=== PATIENT | male | born 1965 | race Caucasian/White ===

== ENCOUNTER 2018-07-09 12:58 | Emergency (ER) | payer MEDICAID, SELFPAY ==
[2018-07-09 12:59] VITALS: BP 150/106; PULSE 87; PULSE 90; RESP 16; RESP 19; TEMP 36.5; O2SAT 100; O2SAT 97; BMI 28.5
--- NOTE | 2018-07-09 13:22 | EKG12_ITS ---
Test Reason : CP Blood Pressure : / mmHG Vent. Rate : 075 BPM Atrial Rate : 075 BPM P-R Int : 140 ms QRS Dur : 090 ms QT Int : 388 ms P-R-T Axes : 045 -21 068 degrees QTc Int : 433 ms Normal sinus rhythm Leftward axis Low voltage QRS (LIMB LEADS) Septal LA, age undetermined Nonspecific T wave abnormality Abnormal ECG Confirmed by AUDELIA JENSEN, BARBARA ([id number]), editor continuity and script PATRICIA SWARTZ ([id number]) on 07/12/2018 1:17:21 PM Referred By: CHE/HUEY Confirmed By:BARBARA WIN MD
--- NOTE | 2018-07-09 13:23 | CT_ITS ---
STUDY: CTA OF THE ABDOMINAL AORTA WITH AND WITHOUT CONTRAST REASON FOR EXAM: Male, 53 years old. Rule out dissection. RADIATION DOSAGE (If Supplied By Facility): CTDIvol = ( 15.06 ) mGy, DLP = ( 1063.12 ) mGycm TECHNIQUE: Axial CT angiography multi-detector data acquisition was obtained from the thoracic inlet through the aortic bifurcation following intravenous administration of 100 ml of Isovue 300 contrast. Axial images were reconstructed from the axial data set. Post-processing was performed, with multiplanar reformation. Individualized dose optimization techniques were used for this CT. TECHNICAL QUALITY: Good COMPARISON: None. FINDINGS: CTA CHEST: The heart and pericardium are normal. The aorta is normal in caliber, with no aneurysm or dissection. There is no mediastinal mass, adenopathy, or hematoma. There is no pleural effusion or pneumothorax. There is no pulmonary consolidation. Lung osman are clear. There is no osseous abnormality. CTA ABDOMEN PELVIS: The liver, spleen, pancreas, adrenal glands, and kidneys are unremarkable. Gallbladder is unremarkable. The aorta is normal in caliber, with no aneurysm or dissection. Celiac, SMA, NATE, renal, and common iliac arteries are unremarkable. There is no demonstrated free fluid, free air, or organized collection. There is moderate wall thickening of the gastric antrum and duodenum, with stranding and shotty adenopathy inferior to the gastric antrum and anterior to the first duodenal segment. Findings are suspicious for peptic ulcer disease or infectious or inflammatory gastroenteritis. There is moderate bowel wall thickening from the duodenum to the mid to distal jejunum. Differential considerations include: Infectious enterocolitis, Crohn's disease, less likely ischemia or lymphoma. There is no bowel obstruction. Diverticulosis is noted, with no demonstrated diverticulitis. The appendix is normal. There is no osseous abnormality. IMPRESSION: 1. There is no dissection or vascular abnormality. 2. Stranding adjacent to the gastric antrum and proximal duodenum suspicious for ulcer disease or gastroenteritis. 3. Moderately extensive small bowel wall thickening through the mid jejunum, suspicious for infectious enterocolitis or Crohn's disease. Electronically Signed: Karon Douglas MD at 16:23 EST Tel , Service support , STUDY: CTA CHEST REASON FOR EXAM: Male, 53 years old. Rule out dissection. RADIATION DOSAGE (If Supplied By Facility): CTDIvol = ( 15.06 ) mGy, DLP = ( 1063.12 ) mGycm TECHNIQUE: Axial CT angiography multi-detector data acquisition was obtained from the thoracic inlet through the aortic bifurcation following intravenous administration of 100 ml of Isovue 300 contrast. Axial images were reconstructed from the axial data set. Post-processing was performed, with multiplanar reformation. Individualized dose optimization techniques were used for this CT. TECHNICAL QUALITY: Good COMPARISON: None. FINDINGS: CTA CHEST: The heart and pericardium are normal. The aorta is normal in caliber, with no aneurysm or dissection. There is no mediastinal mass, adenopathy, or hematoma. There is no pleural effusion or pneumothorax. There is no pulmonary consolidation. Lung osman are clear. There is no osseous abnormality. CTA ABDOMEN PELVIS: The liver, spleen, pancreas, adrenal glands, and kidneys are unremarkable. Gallbladder is unremarkable. The aorta is normal in caliber, with no aneurysm or dissection. Celiac, SMA, NATE, renal, and common iliac arteries are unremarkable. There is no demonstrated free fluid, free air, or organized collection. There is moderate wall thickening of the gastric antrum and duodenum, with stranding and shotty adenopathy inferior to the gastric antrum and anterior to the first duodenal segment. Findings are suspicious for peptic ulcer disease or infectious or inflammatory gastroenteritis. There is moderate bowel wall thickening from the duodenum to the mid to distal jejunum. Differential considerations include: Infectious enterocolitis, Crohn's disease, less likely ischemia or lymphoma. There is no bowel obstruction. Diverticulosis is noted, with no demonstrated diverticulitis. The appendix is normal. There is no osseous abnormality. CT/CTA Abdomen W/WO Contrast IMPRESSION: 1. There is no dissection or demonstrated vascular abnormality. 2. Stranding adjacent to the gastric antrum and proximal duodenum suspicious for ulcer disease or gastroenteritis. 3. Moderately extensive small bowel wall thickening through the mid jejunum, suspicious for infectious enterocolitis or Crohn's disease. Electronically Signed: Karon Douglas MD at 16:23 EST Tel , Service support ,
--- NOTE | 2018-07-09 13:23 | CT_ITS ---
STUDY: CTA OF THE ABDOMINAL AORTA WITH AND WITHOUT CONTRAST REASON FOR EXAM: Male, 53 years old. Rule out dissection. RADIATION DOSAGE (If Supplied By Facility): CTDIvol = ( 15.06 ) mGy, DLP = ( 1063.12 ) mGycm TECHNIQUE: Axial CT angiography multi-detector data acquisition was obtained from the thoracic inlet through the aortic bifurcation following intravenous administration of 100 ml of Isovue 300 contrast. Axial images were reconstructed from the axial data set. Post-processing was performed, with multiplanar reformation. Individualized dose optimization techniques were used for this CT. TECHNICAL QUALITY: Good COMPARISON: None. FINDINGS: CTA CHEST: The heart and pericardium are normal. The aorta is normal in caliber, with no aneurysm or dissection. There is no mediastinal mass, adenopathy, or hematoma. There is no pleural effusion or pneumothorax. There is no pulmonary consolidation. Lung osman are clear. There is no osseous abnormality. CTA ABDOMEN PELVIS: The liver, spleen, pancreas, adrenal glands, and kidneys are unremarkable. Gallbladder is unremarkable. The aorta is normal in caliber, with no aneurysm or dissection. Celiac, SMA, NATE, renal, and common iliac arteries are unremarkable. There is no demonstrated free fluid, free air, or organized collection. There is moderate wall thickening of the gastric antrum and duodenum, with stranding and shotty adenopathy inferior to the gastric antrum and anterior to the first duodenal segment. Findings are suspicious for peptic ulcer disease or infectious or inflammatory gastroenteritis. There is moderate bowel wall thickening from the duodenum to the mid to distal jejunum. Differential considerations include: Infectious enterocolitis, Crohn's disease, less likely ischemia or lymphoma. There is no bowel obstruction. Diverticulosis is noted, with no demonstrated diverticulitis. The appendix is normal. There is no osseous abnormality. IMPRESSION: 1. There is no dissection or vascular abnormality. 2. Stranding adjacent to the gastric antrum and proximal duodenum suspicious for ulcer disease or gastroenteritis. 3. Moderately extensive small bowel wall thickening through the mid jejunum, suspicious for infectious enterocolitis or Crohn's disease. Electronically Signed: Karon Douglas MD at 16:23 EST Tel , Service support , STUDY: CTA CHEST REASON FOR EXAM: Male, 53 years old. Rule out dissection. RADIATION DOSAGE (If Supplied By Facility): CTDIvol = ( 15.06 ) mGy, DLP = ( 1063.12 ) mGycm TECHNIQUE: Axial CT angiography multi-detector data acquisition was obtained from the thoracic inlet through the aortic bifurcation following intravenous administration of 100 ml of Isovue 300 contrast. Axial images were reconstructed from the axial data set. Post-processing was performed, with multiplanar reformation. Individualized dose optimization techniques were used for this CT. TECHNICAL QUALITY: Good COMPARISON: None. FINDINGS: CTA CHEST: The heart and pericardium are normal. The aorta is normal in caliber, with no aneurysm or dissection. There is no mediastinal mass, adenopathy, or hematoma. There is no pleural effusion or pneumothorax. There is no pulmonary consolidation. Lung osman are clear. There is no osseous abnormality. CTA ABDOMEN PELVIS: The liver, spleen, pancreas, adrenal glands, and kidneys are unremarkable. Gallbladder is unremarkable. The aorta is normal in caliber, with no aneurysm or dissection. Celiac, SMA, NATE, renal, and common iliac arteries are unremarkable. There is no demonstrated free fluid, free air, or organized collection. There is moderate wall thickening of the gastric antrum and duodenum, with stranding and shotty adenopathy inferior to the gastric antrum and anterior to the first duodenal segment. Findings are suspicious for peptic ulcer disease or infectious or inflammatory gastroenteritis. There is moderate bowel wall thickening from the duodenum to the mid to distal jejunum. Differential considerations include: Infectious enterocolitis, Crohn's disease, less likely ischemia or lymphoma. There is no bowel obstruction. Diverticulosis is noted, with no demonstrated diverticulitis. The appendix is normal. There is no osseous abnormality. CT/CTA Chest W/WO Contrast IMPRESSION: 1. There is no dissection or demonstrated vascular abnormality. 2. Stranding adjacent to the gastric antrum and proximal duodenum suspicious for ulcer disease or gastroenteritis. 3. Moderately extensive small bowel wall thickening through the mid jejunum, suspicious for infectious enterocolitis or Crohn's disease. Electronically Signed: Karon Douglas MD at 16:23 EST Tel , Service support ,
[2018-07-09 13:46] VITALS: O2SAT 96
[2018-07-09 13:47] LABS: Absolute Lymphocyte Count 2.18 X10^3/ul (0.83-4.51); Absolute Neutrophil Count 9.7 X10^3/uL (2.0-7.7); Basophil# 0.09 X10^3/uL; Basophil% 0.6 % (0-1); Eosinophil# 0.59 X10^3/uL; Eosinophils% 4.2 % (0-5); Hematocrit 50.2 % (40-54); Lymphocyte # 2.18 X10^3/ul (4.0); Lymphocyte % 15.5 % (19-41); Mean Corp Hgb Conc 33.9 g/gl (32-36); Mean Corpuscular Hgb 30.1 pg (27.0-32.0); Mean Platelet Vol. 9.6 fl (6.2-12.0); Monocyte# 1.47 X10^3/uL; Monocyte% 10.5 % (0-10); Neutrophil # 9.68 X10^3/uL (2.7-7.7); Neutrophil % 69.1 % (47-70); Platelet Count 342 K/mm3 (150-450); RBC Distribution Width CV 13.5 % (11.6-14.6); RBC Distribution Width SD 43.9 fl (35.1-43.9); Red Blood Count 5.64 M/mm3 (4.6-6.2)
[2018-07-09] MEDS: Ondansetron 4 MG/2 ML Vial IV (13:51)
[2018-07-09 13:53] LABS: POSITIVE COUNT NO; POSITIVE DIFFERENTIAL NO; POSITIVE MORPHOLOGY NO
[2018-07-09 13:55] LABS: AST(SGOT) 19 U/L (15-37); Alanine Aminotransfer ALT/SGPT 49 U/L (16-61); Albumin, Serum 4.2 g/dL (3.2-5.0); Alkaline Phosphatase 102 U/L (45-117); Anion Gap 10 (5-15); BUN 25 mg/dL (7-18); BUN/Creat Ratio 22.3 RATIO (10-20); Bilirubin, Direct 0.17 mg/dL (0.00-0.30); Chloride 99 mmol/L (98-107); Creatinine, Serum 1.12 mg/dL (0.70-1.30); EST Glomerular Filtration Rate 73 mL/min (>60); Est Glom Filt Rate - Afr Amer 89 mL/min (>60); Estimated Creatinine Clearance 75.49 ml/min; Glucose 108 mg/dL (74-106); Lipase 347 U/L (73-393); Potassium 3.9 mmol/L (3.5-5.1); Protein, Total 8.2 g/dL (6.4-8.2); Sodium Level 136 mmol/L (136-145)
[2018-07-09 13:59] VITALS: BP 156/98; PULSE 71; RESP 16; O2SAT 96
[2018-07-09 14:00] VITALS: BP 156/98; PULSE 70; RESP 16; O2SAT 96
[2018-07-09] MEDS: Mag Hydrox/Al Hydrox/Simeth 30 ML UDC PO (14:10)
[2018-07-09] MEDS: proMETHazine 25 MG/ML Syringe 12.5 MG IV (14:41)
[2018-07-09] MEDS: Aspirin 81 MG TAB.CHEW 324 MG PO (14:51)
--- NOTE | 2018-07-09 16:15 | ED.RN ---
PT WAS UP INDEPENDENTLY TO BATHROOM, GAIT STEADY, PT BACK TO ROOM SITTING UP IN CHAIR REMOVING IV FROM LFA, PT HAS HIS BOOTS ON AND WANTS TO LEAVE. PT THEN REPORTED I'M FEELING WORSE AGAIN. 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 FAMILY AT BEDSIDE. PT AWARE WAITING ON CT SCAN RESULTS. DR. BOLTON INFORMED OF SAME AND WILL SPEAK WITH PT.
[2018-07-09 16:16] LABS: Bedside Glucose 98 mg/dL (70-110)
--- NOTE | 2018-07-09 16:28 | ED.VISSUMM ---
- ER Visit Summary Date of Service: 07/09/18 Chief Complaint: Syncope, unresponsive episode, epigastric pain History of Present Illness: The patient is a 53 M who had a syncopal episode and unresponsive episode per the son. He was using the bathroom when he felt lightheaded and dizzy. He then went to the bed and was unresponsive. He now has epigastric abdominal pain. He does feel some short of breath. He his last stress test is unknown. He is on Augmentin currently for issues with his ears. He denies a fever. Physical Examination: Vital signs reviewed. HEENT exam unremarkable. Heart is regular rate and rhythm without murmurs. Lungs are clear to auscultation. There is lower chest tenderness to palpation. Abdomen is soft epigastric tenderness to palpation. Extremities reveal no edema. Skin exam normal. Neurologic exam normal. Test Results: EKG is normal sinus rhythm with a rate of 75. White blood cell count 14. Troponin normal. CAT scan of the abdomen and pelvis as well as chest reveals no dissection. There is stranding adjacent to the gastric antrum suspicious for ulcer disease. He also has colitis in the small bowel to the mid jejunum Emergency Department Course and Treatment: His syncopal episode was likely vasovagal. Patient is already on Augmentin. He will continue this. I will add Phenergan and Prilosec for home. He received aspirin, Zofran, GI cocktail and Phenergan here. Treatment Plan: [] Disposition: Discharge Impression: Colitis, syncope This note was generated with [employer] dictation software. It may contain incorrect words, spelling, and punctuation that were not noted in review of the chart prior to signing ED Disposition - Plan for ED Patient: Chief Complaint: Unresponsive Referrals: Viktor Marie MD [Primary Care Provider] -
--- NOTE | 2018-07-09 16:30 | ED.DEP ---
ED Disposition - Plan for ED Patient: Disposition: Home or Assisted Living Chief Complaint: Unresponsive Instructions: ED Gastroenteritis Bacterial Prescriptions: proMETHazine tablet [Phenergan] 25 mg PO Q6H PRN PRN #10 tab PRN Reason: Nausea Omeprazole [Prilosec] 20 mg PO DAILY #30 cap Referrals: Viktor Marie MD [Primary Care Provider] -
[2018-07-09 16:40] VITALS: BP 136/93; PULSE 100; RESP 20
== END 2018-07-09 16:43 | disposition home or self-care (01) ==
PROVIDERS: Emergency Provider Emergency Medicine; Family Provider Family Medicine; PCP Family Medicine
DX: K52.9 Noninfective gastroenteritis and colitis, unspecified (principal); R55 Syncope and collapse; I10 Essential (primary) hypertension; Z79.899 Other long term (current) drug therapy; Z72.0 Tobacco use
CPT/HCPCS: 71275; 74175; 80048; 80076; 82962; 83690; 84484; 85025; 93005; 96374; 96375; 99285; J7030; Q9967; A4216; J2405

== ENCOUNTER → 2020-11-07 08:43 | Outpatient (CLI) | payer MEDICAID, SELFPAY ==
[2020-10-05 14:21] VITALS: BMI 31.9
--- NOTE | 2020-11-07 08:44 | MRI_ITS ---
STUDY: MRI LUMBAR SPINE WITHOUT CONTRAST REASON FOR EXAM: Male, 55 years old. pain TECHNIQUE: Standardized fat and water weighted pulse sequences were obtained in the sagittal and axial planes. COMPARISON: X-ray dated 10/05/2020 FINDINGS: Normal lumbar lordosis. There is no substantial scoliosis. Normal conus medullaris that terminates at the L1. L1-2: There is minimal disc space narrowing and endplate spondylosis. There is no significant disc herniation, central canal or foraminal stenosis. L2-3: There is mild disc space narrowing and endplate spondylosis. Mild disc bulge and moderate facet arthropathy with moderate central canal stenosis. Moderate right and mild left foraminal stenosis. L3-4: There is mild disc space narrowing and endplates spondylosis.. Posterior transpedicular screw fusion and decompression laminectomy. There is no demonstrated central canal or left foraminal stenosis. There is mild right foraminal stenosis. L4-5: There is minimal disc space narrowing and endplates spondylosis. Minimal disc bulge and mild facet arthropathy. There is a decompression laminectomy. There is no demonstrated central canal or foraminal stenosis. L5-S1: There is minimal disc space narrowing and endplate spondylosis. There is no significant disc herniation, central canal or foraminal stenosis. Normal visualized sacral ala. MRI/Spine Lumbar (Routine) IMPRESSION: L2/L3: Moderate central canal stenosis. Moderate right foraminal stenosis. L3-L5: Postoperative changes. Electronically Signed: Alfa Blount MD at 9:44 EDT Tel , Service support ,
== END ==
PROVIDERS: PCP Nurse Practitioner Primary Care; Referring Provider Orthopaedic Surgery; Visit Provider Orthopaedic Surgery
DX: M51.26 Other intervertebral disc displacement, lumbar region (principal); G83.4 Cauda equina syndrome
CPT/HCPCS: 72148

== ENCOUNTER 2021-03-27 01:00 | Emergency (ER) | payer MEDICAID, SELFPAY ==
[2021-03-27 01:01] VITALS: BP 172/115; PULSE 88; RESP 16; TEMP 36.1; O2SAT 99; BMI 30.4
--- NOTE | 2021-03-27 03:16 | EDS_ITS ---
HPI History of Present Illness Chief Complaint: Dental Informant: patient Onset/Context/Timing Onset: Today Context: Gradual Onset Timing: Continuous Quality: Sharp, aching Location: Left lower molars Worsened by: Nothing Relieved by: - (Cold liquids) Associated Symptoms Assocated Symptom - Dental: hot sensitivity; Negative for fever, jaw swelling, face swelling or cold sensitivity Narrative Narrative: Patient presents with left lower dental pain that has been getting worse throughout the day today. Patient states his pain is sharp and aching. Patient states it is better when drinking cold liquids. Patient states he has been taking [id number] medications with no improvement. Patient denies any fevers or chills. Patient denies any difficulty breathing or difficulty swallowing. [facility] Medical History Hypertension Home Medications promethazine 25 mg PO Q6H PRN PRN #10 tab 07/09/18 [Rx Last Taken Unknown] buspirone 5 mg tablet 5 mg PO DIRECTED tab 12/09/20 [History Last Taken Unknown] lisinopril 20 mg tablet 20 mg PO DAILY tab 12/09/20 [History Last Taken Unknown] omeprazole 20 mg capsule,delayed release 20 mg PO DAILY cap 02/15/21 [History Last Taken Unknown] tizanidine 4 mg capsule 4 mg PO BID PRN 02/15/21 [History Last Taken Unknown] penicillin V potassium 500 mg PO 4X/DAY #40 tab 03/27/21 [Rx Last Taken Unknown] Allergy/AdvReac Type Severity Reaction Status Date / Time No Known Allergies Allergy Verified 03/27/21 01:01 Family History Other Cancer Heart disease Hypertension Surgical History History of back surgery History of double hernia surgery History of elbow surgery history of partial amputation of finger Social History Smoking Status: Current every day smoker tobacco type: cigarettes alcohol intake: current alcohol intake frequency: a few times a month what type of physical activity do you participate in: other details: stretching frequency: daily ROS ROS ED Constitutional Constitutional ED: Denies chills or fever(s) Eyes Eyes: Denies blurry vision or change in vision ENT ENT ED: Denies rhinorrhea or sore throat Cardiovascular Cardiovascular: Denies chest pain or palpitations Respiratory/Chest Respiratory/Chest: Denies cough or dyspnea Gastrointestinal Gastrointestinal: Denies nausea or vomiting Genitourinary Genitourinary ED: Denies dysuria or hematuria Musculoskeletal Musculoskeletal: Denies back pain or neck pain Integumentary Denies abscess or rash Neurologic Neurologic: Denies headache(s) or weakness Allergic/Immunologic Allergic/Immunologic ED: Denies mouth swelling or urticaria EXAM Physical Exam Const Vital Signs: 03/27/21 01:01 Temperature 97 F L Temperature Source Temporal Pulse Rate 88 Respiratory Rate 16 Blood Pressure 172/115 H Blood Pressure Mean 134 Pulse Ox 99 Positive well nourished and well developed General Appearance ED: well developed HEENT HEENT Narrative: There is tenderness to percussion over the left lower second molar. There is a large dental carry noted over this tooth. There is no gingival edema. There is no abscess. There is no sublingual edema or. Oral mucosa is pink and moist. Oropharynx is clear. Airway is patent. Mouth ED: Yes tongue normal Mouth: tongue normal Teeth and Gingiva: caries Throat: posterior oropharynx normal Neck no lymphadenopathy, supple and no JVD General: normal visual inspection; Negative for anterior neck swelling or submandibular swelling Resp normal respiratory effort and clear to auscultation bilaterally Cardio regular rate and regular rhythm Neuro oriented x3, CN's II-XII intact bilaterally, moves all extremities, no focal motor deficits and no sensory deficits noted Sensorium / Orientation: alert Psych mental status grossly normal MDM MDM MDM Narrative Medical decision making narrative: Patient was given a dose of Pen-Vee K and Naprosyn here. Patient was given a prescription for Pen-Vee K. Patient was instructed to follow-up with his dentist in 5 to 7 days. Patient was instructed return if worse in any way. Patient understood and was agreeable with the plan. All questions were answered. Discharge Plan Triage Chief Complaint: Dental ED Provider: Von Zamorano Dx/Rx/DC Orders Clinical Impression: Infected dental caries Instructions: ED Dental Cavity Prescriptions: New penicillin V potassium 500 MG tablet 500 mg PO 4X/DAY Qty: 40 RF: 0 No Action lisinopril 20 mg tablet 20 mg PO DAILY RF: 0 buspirone 5 mg tablet 5 mg PO DIRECTED RF: 0 omeprazole 20 mg capsule,delayed release(DR/EC) 20 mg PO DAILY RF: 0 tizanidine [Zanaflex] 4 mg capsule 4 mg PO BID PRNRF: 0 promethazine 25 MG tablet 25 mg PO Q6H PRN PRN (Reason: Nausea) Qty: 10 RF: 0 Primary Care Provider: Carl Huang NP Referrals: Carl Huang NP, [facility] [employer] [facility] [Primary Care Provider] - 5-7 Days Dentist,Your [STAFF PHYSICIAN] - 3-5 Days Disposition Disposition: Home, Self Care Discharge Date/Time: 03/27/21 03:30
[2021-03-27] MEDS: Naproxen 250 MG Tablet 500 MG PO (03:30)
[2021-03-27] MEDS: Penicillin Vk 250 MG Tablet 500 MG PO (03:30)
== END 2021-03-27 03:30 | disposition home or self-care (01) ==
PROVIDERS: Emergency Provider Emergency Medicine; PCP Nurse Practitioner Primary Care
DX: K02.9 Dental caries, unspecified (principal); F17.210 Nicotine dependence, cigarettes, uncomplicated
CPT/HCPCS: 99283

== ENCOUNTER 2021-05-31 02:31 | Observation (INO) | payer MEDICAID, SELFPAY ==
[2021-05-31] VITALS (11 sets, daily range): BP systolic 135–185; BP diastolic 76–149; PULSE 54–91; RESP 16–20; TEMP 36.4–36.8; O2SAT 90–100; BMI 30.4; BMI 29.4
--- NOTE | 2021-05-31 02:37 | RAD_ITS ---
STUDY: X-RAY CHEST REASON FOR EXAM: Male, 56 years old. chest pain TECHNIQUE: Single AP portable view of the chest. COMPARISON: Digital Imager view CT chest July 09, 2018. FINDINGS: No focal infiltrates or effusions. No pneumothorax. Normal size heart. Normal mediastinum and mark. Normal visualized pulmonary arteries. Normal visualized aortic arch and descending thoracic aorta. Normal visualized thoracic spine. Normal visualized ribs, clavicles, and shoulders. There is no demonstrated abnormality of the visualized soft tissue structures of the upper abdomen. RAD/Chest 1 View (Portable) IMPRESSION: No acute cardiopulmonary disease. Electronically Signed: August Archibald MD at 3:16 EST , Service support ,
--- NOTE | 2021-05-31 02:37 | EKG12_ITS ---
Test Reason : CP Blood Pressure : / mmHG Vent. Rate : 061 BPM Atrial Rate : 061 BPM P-R Int : 134 ms QRS Dur : 084 ms QT Int : 418 ms P-R-T Axes : 029 -13 055 degrees QTc Int : 420 ms Normal sinus rhythm Nonspecific T wave abnormality Abnormal ECG Confirmed by LESA JENSEN, SYED ([id number]), writer editor JONATHAN MACK ([id number]) on 06/01/2021 1:26:03 PM Referred By: KELLY Confirmed By:SYED MCFADDEN MD
--- NOTE | 2021-05-31 02:42 | EDS_ITS ---
HPI History of Present Illness Chief Complaint: Chest Pain Informant: patient and EMS Onset/Context/Timing Onset: Hours Activity at onset: - (Woke with pain) Timing: Continuous Quality: Positive for Sharp and Stabbing Current Severity: Severe Maximum Severity: Severe Narrative Narrative: Patient presents via EMS secondary to chest and upper abdominal pain. He states he felt well when he went to sleep but woke a couple hours ago with severe pain in lower chest and upper abdomen. He did reportedly vomit. He reports mild shortness of breath. He states he is felt well the last several days with no fever or cough. [facility] Medical History Hypertension Home Medications promethazine 25 mg PO Q6H PRN PRN #10 tab 07/09/18 [Rx Last Taken Unknown] buspirone 5 mg tablet 5 mg PO DIRECTED tab 12/09/20 [History Last Taken Unknown] lisinopril 20 mg tablet 20 mg PO DAILY tab 12/09/20 [History Last Taken Unknown] omeprazole 20 mg capsule,delayed release 20 mg PO DAILY cap 02/15/21 [History Last Taken Unknown] tizanidine 4 mg capsule 4 mg PO BID PRN 02/15/21 [History Last Taken Unknown] penicillin V potassium 500 mg PO 4X/DAY #40 tab 03/27/21 [Rx Last Taken Unknown] Allergy/AdvReac Type Severity Reaction Status Date / Time No Known Allergies Allergy Verified 03/27/21 01:01 Family History Other Cancer Heart disease Hypertension Surgical History History of back surgery History of double hernia surgery History of elbow surgery history of partial amputation of finger Social History Smoking Status: Current every day smoker tobacco type: cigarettes alcohol intake: current alcohol intake frequency: a few times a month what type of physical activity do you participate in: other details: stretching frequency: daily ROS ROS ED Constitutional Constitutional ED: Denies chills or fever(s) Eyes Eyes: Denies change in vision ENT ENT ED: Denies sore throat Cardiovascular Cardiovascular: Reports chest pain Respiratory/Chest Respiratory/Chest: Reports dyspnea; Denies cough Gastrointestinal Gastrointestinal: Reports abdominal pain, nausea and vomiting; Denies diarrhea Genitourinary Genitourinary ED: Denies dysuria Musculoskeletal Musculoskeletal: Denies back pain Integumentary Denies rash Neurologic Neurologic: Denies headache(s) or weakness Psychiatric Psychiatric: Reports anxiety; Denies depression Allergic/Immunologic Allergic/Immunologic ED: Denies urticaria EXAM Physical Exam Const Vital Signs: 05/31/21 02:32 05/31/21 02:42 05/31/21 02:59 Temperature 97.7 F L Temperature Source Oral Pulse Rate 73 60 Respiratory Rate 20 H 17 Blood Pressure 185/149 H 163/99 H Blood Pressure Mean 161 120 Pulse Ox 100 99 90 Oxygen Delivery Method Room Air Room Air Room Air Oxygen Flow Rate (L/min) 05/31/21 03:58 Temperature Temperature Source Pulse Rate 60 Respiratory Rate 17 Blood Pressure 176/101 H Blood Pressure Mean 126 Pulse Ox 96 Oxygen Delivery Method Nasal Cannula Oxygen Flow Rate (L/min) 2 Positive well nourished and well developed General Appearance ED: well developed HEENT Reports moist mucous membranes Eyes PERRL and EOMs intact bilaterally Chest Wall inspection of chest normal and palpation of chest normal Resp Resp Narrative: Tachypnea. Lungs clear to auscultation. Cardio regular rate and regular rhythm GI GI Narrative: Epigastric tenderness to palpation. Extremity normal to inspection Neuro oriented x3 Sensorium / Orientation: awake and alert Psych Attitude: agitated Mood & Affect: anxious Skin Skin Narrative: Diaphoretic Heart Score History: Moderately Suspicious ECG: Normal Age: >45 - <65 years Risk Factors: 1 or 2 Risk Factors Troponin: </= Normal Limit Score: 3 MDM MDM MDM Narrative Medical decision making narrative: Patient been given aspirin with squad. He was given morphine and Zofran here for pain and nausea. Lab work, EKG, chest x- ray obtained. Lab Data Attestation: I reviewed the patient's lab results. Labs: Laboratory Results - last 24 hr 05/31/21 05/31/21 05/31/21 02:44 02:44 02:47 WBC 14.3 H RBC 4.97 Hgb 15.1 Hct 44.6 MCV 89.7 MCH 30.4 MCHC 33.9 RDW Std Deviation 42.4 RDW Coeff of Aarti 12.9 Plt Count 285 MPV 10.6 Immature Gran % (Auto) 0.400 Neut % (Auto) 80.6 H Lymph % (Auto) 12.3 L [place] % (Auto) 5.7 Eos % (Auto) 0.4 Baso % (Auto) 0.6 Absolute Neuts (auto) 11.5 H Absolute Lymphs (auto) 1.76 Nucleated RBC % 0 D-Dimer Quant (PE/DVT) <= 0.27 Sodium 140 Potassium 3.7 Chloride 108 H Carbon Dioxide 27.0 Anion Gap 5 BUN 12 Creatinine 0.88 Estim Creat Clear Calc 92.84 Est GFR (MDRD) Af Amer 116 Est GFR (MDRD) Non-Af 96 BUN/Creatinine Ratio 13.6 Glucose 152 H Calcium 8.4 L Total Bilirubin 0.10 L Direct Bilirubin 0.06 AST 12 L ALT 26 Alkaline Phosphatase 88 Troponin I High Sens 10 Total Protein 6.7 Albumin 3.2 Globulin 3.5 Lipase 225 Radiography Chest X-Ray - ED: 1 View, Read by ED Physician, Normal, Heart, Lungs and Mediastinum Diagnostic Testing: Clinical Impression(s) from Imaging Studies Chest X-Ray 05/31/21 02:37 IMPRESSION: No acute cardiopulmonary disease. Electronically Signed: August Archibald MD at 3:16 EST , Service support , Chest/Abdomen/Pelvis CTA 05/31/21 03:23 IMPRESSION: No acute findings in the chest, abdomen or pelvis. No intra-abdominal free air or free fluid collections. No evidence of bowel obstruction. New nonspecific areas of contrast enhancement of the liver. No evidence of a discrete mass. Correlate with liver function tests. Consider MRI for clarification. Colonic diverticulosis. Electronically Signed: August Archibald MD at 4:37 EST , Service support , EKG Initial EKG: Attestation: I personally reviewed and interpreted this EKG as follows: Interpretation: Sinus Rhythm (Sinus at 61 bpm. Nonspecific lateral T wave flattening.) Treatment and Re-Evaluation Comments:: Patient did require additional dose of Dilaudid and Zofran for further pain control. Lab work significant for leukocytosis with a white count of 14.3. D-dimer and initial troponin negative. LFTs and lipase normal. CTA chest, abdomen, pelvis obtained with no acute findings noted to explain his symptoms. On repeat evaluation patient much more comfortable at this time. Repeat 2-hour troponin has been drawn. I will speak with hospitalist regarding admission for cycling of enzymes and ensure patient is able to tolerate diet. Discharge Plan Triage Chief Complaint: Chest Pain ED Provider: Claudette Harrington Dx/Rx/DC Orders Clinical Impression: Chest pain, Epigastric pain Prescriptions: No Action lisinopril 20 mg tablet 20 mg PO DAILY RF: 0 buspirone 5 mg tablet 5 mg PO DIRECTED RF: 0 omeprazole 20 mg capsule,delayed release(DR/EC) 20 mg PO DAILY RF: 0 tizanidine [Zanaflex] 4 mg capsule 4 mg PO BID PRNRF: 0 promethazine 25 MG tablet 25 mg PO Q6H PRN PRN (Reason: Nausea) Qty: 10 RF: 0 penicillin V potassium 500 MG tablet 500 mg PO 4X/DAY Qty: 40 RF: 0 Primary Care Provider: Calr Huang NP Referrals: Carl Huang SENIOR APPLICATIONS ANALYST, SENIOR APPLICATIONS ANALYST-C [Primary Care Provider] - Disposition Disposition: Acute Care Hospital [facility]
[2021-05-31] MEDS: Ondansetron 4 MG/2 ML Vial IV ×2 (02:45→03:27)
[2021-05-31] MEDS: Morphine 4 MG/ML Syringe IV (02:45)
[2021-05-31] MEDS: 0.9% Normal Saline 1,000 ML 150 ML IV (03:00)
[2021-05-31 03:05] LABS: Absolute Lymphocyte Count 1.76 X10^3/uL (0.83-4.51); Absolute Neutrophil Count 11.5 X10^3/uL (2.0-7.7); Basophil# 0.09 X10^3/uL; Basophil% 0.6 % (0-1); Eosinophil# 0.06 X10^3/uL; Eosinophils% 0.4 % (0-5); Hematocrit 44.6 % (40-54); Hemoglobin 15.1 g/dL (13.0-16.5); Lymphocyte # 1.76 X10^3/ul (0.83-4.51); Lymphocyte % 12.3 % (19-41); Mean Corp Hgb Conc 33.9 g/dL (32-36); Mean Corpuscular Hgb 30.4 pg (27.0-32.0); Mean Corpuscular Volume 89.7 fL (80-94); Mean Platelet Vol. 10.6 fl (6.2-12.0); Monocyte# 0.81 X10^3/uL; Monocyte% 5.7 % (0-10); NRBC Flagged by Analyzer 0 % (0-5); Neutrophil % 80.6 % (47-70); Platelet Count 285 K/mm3 (150-450); RBC Distribution Width CV 12.9 % (11.6-14.6); RBC Distribution Width SD 42.4 fl (35.1-43.9); Red Blood Count 4.97 M/mm3 (4.6-6.2); White Blood Count 14.3 K/mm3 (4.4-11.0)
[2021-05-31 03:20] LABS: AST(SGOT) 12 U/L (15-37); Alanine Aminotransfer ALT/SGPT 26 U/L (16-61); Albumin, Serum 3.2 g/dL (3.2-5.0); Alkaline Phosphatase 88 U/L (45-117); Anion Gap 5 (5-15); BUN 12 mg/dL (7-18); BUN/Creat Ratio 13.6 RATIO (10-20); Bilirubin, Direct 0.06 mg/dL (0.00-0.30); Calcium,Total 8.4 mg/dL (8.5-10.1); Chloride 108 mmol/L (98-107); Creatinine, Serum 0.88 mg/dL (0.70-1.30); EST Glomerular Filtration Rate 96 mL/min (>60); Est Glom Filt Rate - Afr Amer 116 mL/min (>60); Estimated Creatinine Clearance 92.84 ml/min; Globulin 3.5 g/dL (2.2-4.2); Glucose 152 mg/dL (74-106); Lipase 225 U/L (73-393); Potassium 3.7 mmol/L (3.5-5.1); Protein, Total 6.7 g/dL (6.4-8.2); Sodium Level 140 mmol/L (136-145); Troponin-I HS 10 pg/mL (3.0-78.0)
--- NOTE | 2021-05-31 03:23 | CT_ITS ---
STUDY: CTA CHEST, ABDOMEN AND PELVIS WITH CONTRAST REASON FOR EXAM: Male, 56 years old. epigastric pain RADIATION DOSAGE (If Supplied By Facility): CTDIvol = ( 18.70 ) mGy, DLP = ( 1208.19 ) mGycm. Individualized dose optimization techniques were used for this CT.? TECHNIQUE: Axial images through the chest, abdomen and pelvis after administration of 100 mL Isovue 370 intravenous contrast with sagittal and coronal reconstructions. COMPARISON: CTA chest, abdomen and pelvis July 09, 2018 . Chest x-ray May 31, 2021. FINDINGS: CHEST: The heart is not enlarged. No pericardial effusion. No thoracic aortic aneurysm or dissection. No pulmonary embolus. No mediastinal or hilar lymphadenopathy. Bilateral lower lobe subsegmental atelectasis. No effusions. There are focal areas of consolidation. No pneumothorax. Osseous structures are unremarkable. ABDOMEN: There is now nonspecific ill-defined contrast enhancement of portions of the liver, adjacent to the fundus of the gallbladder and within the right lobe of the liver including the lateral periphery. Findings seen on axial image 97 through 124. The gallbladder, pancreas, spleen, adrenal glands, kidneys and ureters are normal. Abdominal aorta is not dilated. No abdominal aortic dissection. No retroperitoneal lymphadenopathy. No intra-abdominal free air or free fluid collections. The stomach, small intestine and grossly normal. Colonic diverticulosis with most prominent involvement of the descending and sigmoid colon. Appendix is normal. Pelvis: Urinary bladder is normal. Prostate gland is not enlarged. No pelvic sidewall lymphadenopathy. Posterior lumbar fusion L3-L4. CT/CTA Chst, Abd, Pel W and/or WO IMPRESSION: No acute findings in the chest, abdomen or pelvis. No intra-abdominal free air or free fluid collections. No evidence of bowel obstruction. New nonspecific areas of contrast enhancement of the liver. No evidence of a discrete mass. Correlate with liver function tests. Consider MRI for clarification. Colonic diverticulosis. Electronically Signed: August Archibald MD at 4:37 EST , Service support ,
[2021-05-31] MEDS: HYDROmorphone 0.5 MG/0.5 ML SYRINGE IV (03:28)
[2021-05-31 04:03] LABS: D-Dimer Quantitative (DVT/PE) <= 0.27 FEU/ug/m (0.27-0.49)
--- NOTE | 2021-05-31 04:53 | PCM.HP.STD ---
HPI - General General Date of Admission: 05/31/21 Date of Service: 05/31/21 Chief Complaint: Abdominal/epigastric pain, N/V HPI Narrative The patient is a 56 y/o M w/ PMHx: EtOH abuse (prior 12 pack daily->cut back ~ 1 year to occasional), Obesity, HTN, Tobacco use, Chronic back pain, Anxiety, GERD who presents to the [facility] ED on 05/31/21 with history of awakening approximately 2 hours prior to ED presentation with sudden onset sharp stabbing severe 10 out of 10 lower chest and upper abdominal pain with associated nausea, emesis and mild dyspnea with no poor reported recent illness and given not improving prompted ED evaluation. Work-up in the ED included T 97.7, heart rate 73, BP initially 185/149 with most recent repeat 163/99, respiratory rate 20, 100% on room air, CBC with WBC 14.3, hemoglobin 15.1, platelet 285 with left shift, CMP with glucose 152, total bilirubin 0.10 otherwise unremarkable hepatic profile, lipase 225, high-sensitivity troponin 10, chest x-ray with no acute cardiopulmonary findings, D-dimer 0.27, EKG with sinus rhythm with nonspecific lateral T wave flattening with no acute evidence of ischemia, CTA chest abdomen and pelvis with no acute findings in the chest abdomen or pelvis, no intra-abdominal free air or free fluid collections, no evidence of bowel obstruction, new nonspecific areas of contrast-enhancement of the liver with no evidence of any discrete mass, colonic diverticulosis. [facility] Medical History Anxiety Chronic back pain GERD (gastroesophageal reflux disease) History of alcohol abuse Hypertension Obesity Tobacco use Home Medications promethazine 25 mg PO Q6H PRN PRN #10 tab 07/09/18 [Rx Last Taken Unknown] buspirone 5 mg tablet 5 mg PO DIRECTED tab 12/09/20 [History Last Taken Unknown] lisinopril 20 mg tablet 20 mg PO DAILY tab 12/09/20 [History Last Taken Unknown] omeprazole 20 mg capsule,delayed release 20 mg PO DAILY cap 02/15/21 [History Last Taken Unknown] tizanidine 4 mg capsule 4 mg PO BID PRN 02/15/21 [History Last Taken Unknown] penicillin V potassium 500 mg PO 4X/DAY #40 tab 03/27/21 [Rx Last Taken Unknown] Allergy/AdvReac Type Severity Reaction Status Date / Time No Known Allergies Allergy Verified 03/27/21 01:01 Family History (Updated 05/31/21 @ 05:[address] Kiera Soliz MD) Mother Cancer Breast CA. Father Heart disease Hypertension Brother Myocardial infarction Surgical History History of back surgery History of double hernia surgery History of elbow surgery history of partial amputation of finger Social History (Updated 05/31/21 @ 05:[address] Kiera Soliz MD) household members: none Smoking Status: Current every day smoker tobacco type: cigarettes Smoking packs per day: 1.5 Smoking cigarettes per day: 30.0 alcohol intake: current alcohol intake frequency: a few times a month details: Former heavy 1 pack beer daily until 1 year prior, now occasional only. substance use type: does not use what type of physical activity do you participate in: other details: stretching frequency: daily ROS ROS Narrative Admission Review of Systems: CONSTITUTIONAL: No weight loss, fever, chills, + weakness or fatigue. HEENT: Eyes: No visual loss, blurred vision, double vision or yellow sclerae. Ears, Nose, Throat: No hearing loss, sneezing, congestion, runny nose or sore throat. SKIN: No rash or itching, lesions, wounds. CARDIOVASCULAR: + chest pain, chest pressure or chest discomfort, No palpitations, edema, orthopnea, syncopal events. RESPIRATORY: No shortness of breath, cough or sputum, wheezing, hemoptysis. GASTROINTESTINAL: + anorexia, nausea, vomiting, epigastric abdominal pain, No diarrhea, melena, BRBPR. GENITOURINARY: No dysuria, frequency, urgency or retention. NEUROLOGICAL: No headache, dizziness, syncope, paralysis, ataxia, numbness or tingling in the extremities, focal weakness, change in bowel or bladder control, seizure. MUSCULOSKELETAL: + muscle, back pain, joint pain or stiffness. HEMATOLOGIC: No anemia, bleeding or bruising. LYMPHATICS: No enlarged nodes. No history of splenectomy. PSYCHIATRIC: + history of depression or anxiety. ENDOCRINOLOGIC: No reports of sweating, cold or heat intolerance. No polyuria or polydipsia. ALLERGIES: No history of asthma, hives, eczema or rhinitis. Vital Signs Vital Signs Vital Signs: 05/31/21 02:32 05/31/21 02:42 05/31/21 02:59 Temperature 97.7 F L Temperature Source Oral Pulse Rate 73 60 Respiratory Rate 20 H 17 Blood Pressure 185/149 H 163/99 H Blood Pressure Mean 161 120 Pulse Ox 100 99 90 Oxygen Delivery Method Room Air Room Air Room Air Oxygen Flow Rate (L/min) 05/31/21 03:58 Temperature Temperature Source Pulse Rate 60 Respiratory Rate 17 Blood Pressure 176/101 H Blood Pressure Mean 126 Pulse Ox 96 Oxygen Delivery Method Nasal Cannula Oxygen Flow Rate (L/min) 2 Weight Weight: 199 lb 15.348 oz Body Mass Index (BMI) 30.4 Physical Exam Narrative Physical Examination: General: Awake, alert, oriented x 3 and cooperative, laying in the bed, fatigued, mildly uncomfortable. Skin: Normal color, normal turgor, no icterus, no cyanosis. HEENT: AT/NC, EOMI, PERRLA, mildly dry MM, no carotid bruits or JVD noted. Lungs: Diminished, greater bases, appropriate effort, no rales, ronchi or wheezing. Heart: Mildly bradycardic with regular rhythm; no gallop, rub audible, unable to reproduce any chest discomfort palpation of the rib cage or sternal region but reports pain in this region. Abdomen: Soft, discomfort in the epigastric region with palpation however with distraction seems to lessen, ND, mildly hyperactive BS, no HSM. Extremities: No cyanosis, clubbing, or edema. Neurological: Patient awake, alert, oriented as noted, cognitive function intact; pupils equally reactive to light and accommodation, cranial nerves II-XII grossly normal, moving all 4 extremities, no focal deficits, strength mildly moderately globally Brenda secondary to pain. Psychiatric: Affect appears fatigued, uncomfortable, no acute evidence of depressive or anxiety feelings. Results Lab / Micro Data Result Diagrams: 05/31/21 02:44 05/31/21 02:44 Labs: Laboratory Results - last 24 hr 05/31/21 02:44: WBC 14.3 H, RBC 4.97, Hgb 15.1, Hct 44.6, MCV 89.7, MCH 30.4, MCHC 33.9, RDW Std Deviation 42.4, RDW Coeff of Aarti 12.9, Plt Count 285, MPV 10.6, Immature Gran % (Auto) 0.400, Neut % (Auto) 80.6 H, Lymph % (Auto) 12.3 L, [place] % (Auto) 5.7, Eos % (Auto) 0.4, Baso % (Auto) 0.6, Absolute Neuts (auto) 11.5 H, Absolute Lymphs (auto) 1.76, Nucleated RBC % 0 05/31/21 02:44: Sodium 140, Potassium 3.7, Chloride 108 H, Carbon Dioxide 27.0, Anion Gap 5, BUN 12, Creatinine 0.88, Estim Creat Clear Calc 92.84, Est GFR (MDRD) Af Amer 116, Est GFR (MDRD) Non-Af 96, BUN/Creatinine Ratio 13.6, Glucose 152 H, Calcium 8.4 L, Total Bilirubin 0.10 L, Direct Bilirubin 0.06, AST 12 L, ALT 26, Alkaline Phosphatase 88, Troponin I High Sens 10, Total Protein 6.7, Albumin 3.2, Globulin 3.5, Lipase 225 05/31/21 02:47: D-Dimer Quant (PE/DVT) <= 0.27 Radiology Impression Chest X-Ray 05/31/21 02:37 IMPRESSION: No acute cardiopulmonary disease. Electronically Signed: August Archibald MD at 3:16 EST , Service support , Chest/Abdomen/Pelvis CTA 05/31/21 03:23 IMPRESSION: No acute findings in the chest, abdomen or pelvis. No intra-abdominal free air or free fluid collections. No evidence of bowel obstruction. New nonspecific areas of contrast enhancement of the liver. No evidence of a discrete mass. Correlate with liver function tests. Consider MRI for clarification. Colonic diverticulosis. Electronically Signed: August Archibald MD at 4:37 EST , Service support , Assessment & Plan Assessment/Plan (1) Chest pain: QUALIFIERS: Chest pain type: unspecified Qualified Code(s): R07.9 - Chest pain, unspecified (2) Epigastric pain: PLAN: The patient is a 56 y/o M w/ PMHx: Obesity, HTN, Tobacco use, Chronic back pain, Anxiety, GERD who presents to the [facility] ED on 05/31/21 with history of awakening approximately 2 hours prior to ED presentation with sudden onset sharp stabbing severe 10 out of 10 lower chest and upper abdominal pain with associated nausea, emesis and mild dyspnea with no poor reported recent illness and given not improving prompted ED evaluation. #1. Chest Pain/epigastric pain, Lower suspicion cardiac, More Suspicious for Possible Ulcer/Gastritis: EKG in ED sinus rhythm with nonspecific lateral T wave flattening with no acute evidence of ischemia, CXR w/ no acute cardiopulmonary findings, initial trop 10 with delta troponin pending. Will admit to PCU to be cautious given family history and underlying co-morbidities, Will place on a monitored bed to assure no acute myocardial infarction with serial cardiac enzymes and EKGs. If repeat serial cardiac enzymes and EKGs are unremarkable will pursue a.m. cardiac stress testing. If cardiac stress testing is unremarkable then would pursue consultation for EGD. Will add PPI and carafate in the interim. Cautiously ASA 81 mg given suspicion for possible gastritis as etiology for current presentation. Magnesium pending. FLP in AM. #2. Nonspecific contrast-enhancement of the liver, unclear etiology: LFTs not marked appearing with AST/ALT 07/04, alk phos 88, T bili 0.10, D bili 0.06, will request liver ultrasound. #3. Hyperglycemia: Admission glucose 152, possibly stress response, will obtain hemoglobin A1c to be cautious #4. Chronic pain syndrome, back pain, DDD: We will continue patient home tizanidine regimen, encourage positional changes. #5. Hypertension: Continue home regimen including lisinopril, PRN hydralazine. #6. Anxiety: We will continue patient home BuSpar regimen. #7. Tobacco Abuse: Encouraged cessation, inpatient consultation per RT, NR if desired. #8. GERD: Maintain on IV PPI and adding carafate given suspicion for gastritis/ulcer as presentation etiology. #9. DVT prophylaxis: SCDs, Lovenox. Charges/Coding Visit Charges OBSV E&M: 97431 Initial observation care L3
[2021-05-31 05:08] LABS: Troponin-I HS 7 pg/mL (3.0-78.0)
[2021-05-31 05:44] LABS: Magnesium 1.9 mg/dL (1.6-2.6)
--- NOTE | 2021-05-31 05:45 | EKG12_ITS ---
Test Reason : CP ADMIT Blood Pressure : / mmHG Vent. Rate : 062 BPM Atrial Rate : 062 BPM P-R Int : 140 ms QRS Dur : 092 ms QT Int : 436 ms P-R-T Axes : 039 -01 051 degrees QTc Int : 442 ms Normal sinus rhythm Nonspecific T wave abnormality Abnormal ECG When compared with ECG of 31-MAY-2021 02:36, MANUAL COMPARISON REQUIRED, DATA IS UNCONFIRMED Confirmed by LESA JENSEN, SYED ([id number]), school photograph editor JONATHAN MACK ([id number]) on 06/01/2021 1:51:09 PM Referred By: JEIMY Confirmed By:SYED MCFADDEN MD
--- NOTE | 2021-05-31 05:55 | US_ITS ---
EXAM: US ABDOMEN LIMITED, RIGHT UPPER QUADRANT CLINICAL INDICATION: abnormal liver on CT TECHNIQUE: Real-time ultrasound of the right upper quadrant with image documentation. This report was created using [employer] report generation technology. COMPARISON: CTA 05/31/2021 FINDINGS: LIVER: Diffusely heterogeneous echogenicity throughout the liver although no discrete hepatic mass. No intrahepatic biliary ductal dilation. GALLBLADDER: Unremarkable. No shadowing gallstone. No gallbladder wall thickening is demonstrated. No pericholecystic fluid. Negative sonographic Mahmood''s sign. COMMON BILE DUCT: Unremarkable as visualized. The proximal common bile duct is within normal limits for the patient''s age. PANCREAS: Unremarkable as visualized. No focal abnormality is demonstrated in the pancreas. No pancreatic ductal dilatation. RIGHT KIDNEY: Unremarkable. There is no hydronephrosis. No shadowing calculus. No focal lesion or perinephric collection is demonstrated. US/Liver IMPRESSION: Diffusely heterogeneous echogenicity throughout the liver although no discrete hepatic mass. May represent infiltrating process such as fatty infiltration, hepatitis or early hepatic fibrosis. Electronically Signed: Johan Armenta MD ([place]) at 8:37 EST , Service support ,
[2021-05-31] MEDS: 0.9% Normal Saline 1,000 ML 100 ML IV (06:08)
[2021-05-31] MEDS: Mag Hydrox/Al Hydrox/Simeth 30 ML UDC PO (06:17)
[2021-05-31] MEDS: Lisinopril 20 MG Tablet PO (06:18)
[2021-05-31 06:39] LABS: Absolute Lymphocyte Count 2.01 X10^3/uL (0.83-4.51); Absolute Neutrophil Count 13.5 X10^3/uL (2.0-7.7); Basophil# 0.07 X10^3/uL; Basophil% 0.4 % (0-1); Eosinophil# 0.02 X10^3/uL; Eosinophils% 0.1 % (0-5); Hematocrit 46.1 % (40-54); Lymphocyte # 2.01 X10^3/ul (0.83-4.51); Mean Corp Hgb Conc 32.5 g/dL (32-36); Mean Corpuscular Hgb 29.5 pg (27.0-32.0); Mean Corpuscular Volume 90.6 fL (80-94); Mean Platelet Vol. 10.4 fl (6.2-12.0); Monocyte# 1.01 X10^3/uL; NRBC Flagged by Analyzer 0 % (0-5); Neutrophil # 13.51 X10^3/uL (2.7-7.7); Platelet Count 277 K/mm3 (150-450); RBC Distribution Width CV 12.9 % (11.6-14.6); RBC Distribution Width SD 43.5 fl (35.1-43.9); Red Blood Count 5.09 M/mm3 (4.6-6.2); White Blood Count 16.7 K/mm3 (4.4-11.0)
[2021-05-31] MEDS: proCHLORPERazine 10 MG/2 ML Vial 5 MG IV (07:05)
[2021-05-31] MEDS: Morphine 2 MG/ML Syringe IV (07:05)
[2021-05-31 07:17] LABS: ALB/GLOB Ratio 0.9 RATIO (0.9-2.4); AST(SGOT) 20 U/L (15-37); Alanine Aminotransfer ALT/SGPT 29 U/L (16-61); Albumin, Serum 3.1 g/dL (3.2-5.0); Alkaline Phosphatase 80 U/L (45-117); Anion Gap 3 (5-15); BUN 11 mg/dL (7-18); Calcium,Total 8.2 mg/dL (8.5-10.1); Chloride 109 mmol/L (98-107); Cholesterol 124 mg/dL (200); Creatinine, Serum 0.85 mg/dL (0.70-1.30); EST Glomerular Filtration Rate 100 mL/min (>60); Est Glom Filt Rate - Afr Amer 121 mL/min (>60); Estimated Creatinine Clearance 96.12 ml/min; Globulin 3.3 g/dL (2.2-4.2); Glucose 112 mg/dL (74-106); High Density Lipoprotein 42 mg/dL; Potassium 3.8 mmol/L (3.5-5.1); Protein, Total 6.4 g/dL (6.4-8.2); Sodium Level 140 mmol/L (136-145); Triglycerides 78 mg/dL; Very Low Density Lipoprotein 16 mg/dL (5-40)
[2021-05-31 07:59] LABS: Troponin-I HS 6 pg/mL (3.0-78.0)
[2021-05-31 09:31] LABS: Hemoglobin A1c 5.5 % (3.8-5.6)
--- NOTE | 2021-05-31 10:02 | DCINST_ITS ---
Discharge Instructions Diet Discharge Diet: Low fat / Low cholesterol and 2000 mg Sodium Diet Activity Discharge Activity: Return to Normal Activity Weight Bearing Status: Weight bearing as tolerated Dressing / Incision Call your doctor if you observe: Fever of 101 or Higher, Coldness, Increased Pain, Numbness or Tingling, Change in Color, Inability to urinate, Inability to have a bowel movement, Shortness of breath, Dizziness, Fainting spells, Swelling in the ankles, Chest pain, Prolonged hiccupping, Increased palpitations (irregular heartbeat) and Calf discomfort Follow Up Care Test Results: Test results from this visit will be discussed in further detail at your follow-up appointment, if applicable. Discharge Plan Admission Admit Date/Time: 05/31/21 04:57 Primary Reason for Your Visit: Atypical chest pain Attending Provider: Dany Mina Primary Care Provider: Carl Huang NP Discharge Orders/Prescriptions Prescriptions: New sucralfate 1 gram Tablet 1 g PO 1HR_ACHS Qty: 120 RF: 0 nicotine 21 mg/24 hr Patch 24 Hour 21 mg transdermal DAILY Qty: 30 RF: 0 omeprazole 40 mg capsule,delayed release(DR/EC) 40 mg PO BID Qty: 60 RF: 0 Continued lisinopril 20 mg tablet 20 mg PO DAILY RF: 0 buspirone 5 mg tablet 5 mg PO BID RF: 0 tizanidine [Zanaflex] 4 mg capsule 4 mg PO DAILY RF: 0 hydroxyzine pamoate 25 mg capsule 25 mg PO BID PRN (Reason: Anxiety) RF: 0 meloxicam 7.5 mg Tablet 7.5 mg PO DAILY Qty: 0 RF: 0 Discontinued omeprazole 20 mg capsule,delayed release(DR/EC) 20 mg PO DAILY RF: 0 Referrals / Follow Up: Carl Huang NP, LEARNING SOLUTIONS SPECIALIST-C [Primary Care Provider] - Within 1 Week FriendAmari DO [STAFF PHYSICIAN] - Within 2 Weeks (For gastritis. Patient needs EGD.)
--- NOTE | 2021-05-31 11:24 | STRESSREP ---
Stress Test Report Pharmacologic myocardial perfusion stress test. 56-year-old man with a history of chest pain. Stress protocol: Resting EKG demonstrates normal sinus rhythm with a rate of 66 bpm normal intervals are noted resting blood pressure is 142/90 mmHg. 0.4 mg of regadenoson was infused per usual protocol followed by rapid intravenous saline flush injection continuous EKG monitoring was performed. The maximum heart rate attained was 102 bpm which was 61% of maximum predicted heart rate the maximum workload was 1 metabolic equivalent. At rest there were no ST or T wave changes noted to suggest abnormal flow reserve and at peak infusion nonspecific ST changes were noted with did not meet the criteria for ischemia. No clinical angina was noted. Myocardial perfusion protocol. 12.0 mCi of technetium 99m sestamibi was injected at rest. 0.4 mg of regadenoson was infused per usual protocol. At peak infusion 34.3 mCi of technetium 99m sestamibi was injected stress images were obtained stress and rest images were reconstructed and compared in the short axis vertical long horizontal long axis. Gated images were also obtained. Perfusion SPECT analysis: Review of the stress images demonstrate normal uptake of tracer noted in all areas of the myocardium. The resting images similarly demonstrate normal uptake of tracer noted in all areas of the myocardium. No areas of reversibility are noted to suggest ischemia. Gated SPECT analysis: The gated ejection fraction is 62%. Conclusion: Normal pharmacologic myocardial perfusion stress test. Preserved ejection fraction.
--- NOTE | 2021-05-31 12:02 | DS.PCM_ITS ---
Providers Date of Admission: 05/31/21 Primary Care Physician: STEPHANIA Mckeon Reason For Visit: CHEST PAIN/EPIGASTRIC PAIN Diagnosis Discharge Diagnosis (1) Chest pain: Status: Acute Code(s): R07.9 - Chest pain, unspecified Qualifiers: Chest pain type: unspecified Qualified Code(s): R07.9 - Chest pain, unspecified (2) Epigastric pain: Status: Acute Code(s): R10.13 - Epigastric pain Medications at Discharge Home Medications buspirone 5 mg tablet 5 mg PO BID tab 12/09/20 lisinopril 20 mg tablet 20 mg PO DAILY tab 12/09/20 tizanidine 4 mg capsule 4 mg PO DAILY 02/15/21 hydroxyzine pamoate 25 mg PO BID PRN 05/31/21 meloxicam 7.5 mg PO DAILY #0 tab 05/31/21 nicotine 21 mg TRANSDERMAL DAILY #30 ea 05/31/21 omeprazole 40 mg PO BID #60 cap 05/31/21 sucralfate 1 g PO 1HR_ACHS #120 tab 05/31/21 Hospital Course Summary of Care Provided Hospital Course: This is a 56-year-old gentleman came to ER with upper abdominal pain that woke him up. Patient also had vomiting. In ED, patient had CTA chest, abdomen and pelvis did not show any acute abnormality. Patient has leukocytosis, but does not have focal signs and symptoms of infection. Liver chemistry lipase normal. Patient admitted to PCU. Patient was put on IV PPI every 12 hours and Carafate and serial troponins. Serial isolated troponins are negative. Twelve-lead EKG shows normal sinus rhythm with no acute evidence of ischemia. Nonspecific ST-T changes. Patient further had pharmacological myocardial perfusion stress test which reported normal. EF 62%. Patient was educated reported epigastric pain and advised not to take ibuprofen. Patient c an take meloxicam as needed 7.5 mg daily along with omeprazole 40 mg twice daily and Carafate. Prescription for omeprazole and Carafate given. Patient has other comorbidities which include hypertension, anxiety, chronic tobacco use/smoking, hyperglycemia. A1c was done reported 5.5 in normal range. Diabetes mellitus ruled out. Discharge medication reconciliation done. Discharge follow-up instructions completed. Discharge process discussed with the patient and all questions were answered to patient's satisfaction. Total time spent, exact 35 minutes on discharge meds reconciliation, exa mination, coordination of care with nurses and ancillary staff, review of imaging and blood test and discussion with the patient on follow-up instructions Physical Exam Narrative Patient has chronic back pain and he takes meloxicam and probably ibuprofen also. He said he takes ibuprofen 4 tablets at least 3 times daily but but I do not see ibuprofen mentioned in his home medication. Complain of chronic epigastric pain. General: Alert, Oriented x3, Cooperative HEENT: Atraumatic, PERRLA, EOMI, Normocephalic Oral: No Gingival or Mucosal Lesions/ Ulcerations Neck: Supple, No JVD, Negative Carotid Bruits Lungs: Air entry diminished in bilateral lung bases. No crepitation/rhonchi Cardiovascular: Regular rate, Regular Rhythm, Normal S1, Normal S2, No murmurs Abdomen: Mild deep epigastric tenderness. Bowel Sounds Present, Soft, Non- Distended : No renal angle tenderness. No suprapubic tenderness. Extremities: No edema, Capillary Refill Less than 3 Seconds Skin: No rashes, No breakdown Musculoskeletal: No Tenderness to Palpation of Joints or Extremities Neurological: Cranial nerves II-XII grossly intact, DTR 2+/4 and Symmetrical, Neuro grossly intact Psych/Mental Status: Normal Affect, Appropriate. Weight / BMI Weight Weight: 193 lb 9.054 oz Body Mass Index (BMI) 29.4 ABG / Lab / Microbiology Data Result Diagrams: 05/31/21 06:22 05/31/21 06:22 Laboratory: Laboratory Results - last 24 hr 05/31/21 02:44: WBC 14.3 H, RBC 4.97, Hgb 15.1, Hct 44.6, MCV 89.7, MCH 30.4, MCHC 33.9, RDW Std Deviation 42.4, RDW Coeff of Aarti 12.9, Plt Count 285, MPV 10.6, Immature Gran % (Auto) 0.400, Neut % (Auto) 80.6 H, Lymph % (Auto) 12.3 L, [place] % (Auto) 5.7, Eos % (Auto) 0.4, Baso % (Auto) 0.6, Absolute Neuts (auto) 11.5 H, Absolute Lymphs (auto) 1.76, Nucleated RBC % 0 05/31/21 02:44: Sodium 140, Potassium 3.7, Chloride 108 H, Carbon Dioxide 27.0, Anion Gap 5, BUN 12, Creatinine 0.88, Estim Creat Clear Calc 92.84, Est GFR (MDRD) Af Amer 116, Est GFR (MDRD) Non-Af 96, BUN/Creatinine Ratio 13.6, Glucose 152 H, Calcium 8.4 L, Total Bilirubin 0.10 L, Direct Bilirubin 0.06, AST 12 L, ALT 26, Alkaline Phosphatase 88, Troponin I High Sens 10, Total Protein 6.7, Albumin 3.2, Globulin 3.5, Lipase 225 05/31/21 02:44: Magnesium 1.9 05/31/21 02:47: D-Dimer Quant (PE/DVT) <= 0.27 05/31/21 04:30: Troponin I High Sens 7 05/31/21 06:22: WBC 16.7 H, RBC 5.09, Hgb 15.0, Hct 46.1, MCV 90.6, MCH 29.5, MCHC 32.5, RDW Std Deviation 43.5, RDW Coeff of Aarti 12.9, Plt Count 277, MPV 10. 4, Immature Gran % (Auto) 0.500, Neut % (Auto) 81.0 H, Lymph % (Auto) 12.0 L, [place] % (Auto) 6.0, Eos % (Auto) 0.1, Baso % (Auto) 0.4, Absolute Neuts (auto) 13.5 H, Absolute Lymphs (auto) 2.01, Nucleated RBC % 0 05/31/21 06:22: Sodium 140, Potassium 3.8, Chloride 109 H, Carbon Dioxide 28.0, Anion Gap 3 L, BUN 11, Creatinine 0.85, Estim Creat Clear Calc 96.12, Est GFR (MDRD) Af Amer 121, Est GFR (MDRD) Non-Af 100, BUN/Creatinine Ratio 13.0, Glucose 112 H, Calcium 8.2 L, Total Bilirubin 0.20, AST 20, ALT 29, Alkaline Phosphatase 80, Total Protein 6.4, Albumin 3.1 L, Globulin 3.3, Albumin/Globulin Ratio 0.9, Triglycerides 78, Cholesterol 124, LDL Cholesterol 66, VLDL Cholesterol 16, HDL Cholesterol 42 05/31/21 06:22: Hemoglobin A1c 5.5 05/31/21 06:22: Troponin I High Sens 6 Radiography Diagnostic Testing: Radiology Impression Chest X-Ray 05/31/21 02:37 IMPRESSION: No acute cardiopulmonary disease. Electronically Signed: Aguust Archibald MD at 3:16 EST , Service support , Chest/Abdomen/Pelvis CTA 05/31/21 03:23 IMPRESSION: No acute findings in the chest, abdomen or pelvis. No intra-abdominal free air or free fluid collections. No evidence of bowel obstruction. New nonspecific areas of contrast enhancement of the liver. No evidence of a discrete mass. Correlate with liver function tests. Consider MRI for clarification. Colonic diverticulosis. Electronically Signed: August Archibald MD at 4:37 EST , Service support , Meaningful Use Info Meaningful Use Diagnoses (Choose all that apply): None applicable Discharge Plan Admission Admit Date/Time: 05/31/21 04:57 Primary Reason for Your Visit: Atypical chest pain Attending Provider: Dany Mina Primary Care Provider: Carl Huang NP Discharge Orders/Prescriptions Prescriptions: New sucralfate 1 gram Tablet 1 g PO 1HR_ACHS Qty: 120 RF: 0 nicotine 21 mg/24 hr Patch 24 Hour 21 mg transdermal DAILY Qty: 30 RF: 0 omeprazole 40 mg capsule,delayed release(DR/EC) 40 mg PO BID Qty: 60 RF: 0 Continued lisinopril 20 mg tablet 20 mg PO DAILY RF: 0 buspirone 5 mg tablet 5 mg PO BID RF: 0 tizanidine [Zanaflex] 4 mg capsule 4 mg PO DAILY RF: 0 hydroxyzine pamoate 25 mg capsule 25 mg PO BID PRN (Reason: Anxiety) RF: 0 meloxicam 7.5 mg Tablet 7.5 mg PO DAILY Qty: 0 RF: 0 Discontinued omeprazole 20 mg capsule,delayed release(DR/EC) 20 mg PO DAILY RF: 0 Referrals / Follow Up: Friend,DO Amari [STAFF PHYSICIAN] - Within 2 Weeks (For gastritis. Patient needs EGD.) Carl Huang NP, [employer] [Primary Care Provider] - Within 1 Week Charges/Coding Visit Charges OBSV E&M: 14497 Observation care discharge
[2021-05-31] MEDS: Sucralfate 1 GM Tablet PO (12:46)
--- NOTE | 2021-05-31 15:18 | PHA.DC.MC ---
Pharmacy Service has performed discharge medication reconciliation and counseling for this patient. 1. SUCRALFATE 1GM PO 1HR_ACHS 2. NICOTINE PATCH 21MG TD DAILY The patient's discharge medication list was reviewed for discrepancies and discrepancies were resolved. Home Medications buspirone 5 mg tablet 5 mg PO BID tab 12/09/20 lisinopril 20 mg tablet 20 mg PO DAILY tab 12/09/20 tizanidine 4 mg capsule 4 mg PO DAILY 02/15/21 hydroxyzine pamoate 25 mg PO BID PRN 05/31/21 meloxicam 7.5 mg PO DAILY #0 tab 05/31/21 nicotine 21 mg TRANSDERMAL DAILY #30 ea 05/31/21 omeprazole 40 mg PO BID #60 cap 05/31/21 sucralfate 1 g PO 1HR_ACHS #120 tab 05/31/21 The patient was counseled on the following discharge medications and changes in medications for homegoing were reviewed. The Reason for Use, instructions for use, and potential side effects were reviewed for all new medications. The patient's questions regarding all of their medications were answered. The patient was able to verbally demonstrate an understanding of their discharge medications.
== END 2021-05-31 14:50 | disposition home or self-care (01) ==
LOC: ED 04:51 → PCU 05:06
PROVIDERS: Admitting Provider Family Medicine; Emergency Provider Emergency Medicine; PCP Nurse Practitioner Primary Care; Visit Provider Internal Medicine
DX: R07.89 Other chest pain (principal); R10.13 Epigastric pain; I10 Essential (primary) hypertension; F17.210 Nicotine dependence, cigarettes, uncomplicated; G89.29 Other chronic pain; F41.9 Anxiety disorder, unspecified; E11.65 Type 2 diabetes mellitus with hyperglycemia; K21.9 Gastro-esophageal reflux disease without esophagitis; Z68.29 Body mass index [BMI] 29.0-29.9, adult; Z79.899 Other long term (current) drug therapy
CPT/HCPCS: 36415; 71045; 71275; 74174; 76705; 78452; 80048; 80053; 80061; 80076; 83036; 83690; 83735; 84484; 85025; 85379; 93005; 93017; 96361; 96365; 96375; 96376; 99285; 99406; A9500; J7030; Q9967; A4216; J2405; J2785

== ENCOUNTER 2021-07-08 07:30 | Observation (INO) | payer MEDICAID, SELFPAY ==
[2021-07-08] VITALS (13 sets, daily range): BP systolic 130–182; BP diastolic 80–117; PULSE 66–103; RESP 16–24; TEMP 36.2–36.8; O2SAT 94–100; BMI 34.2; BMI 30.4
--- NOTE | 2021-07-08 07:45 | CT_ITS ---
EXAM: CT ABDOMEN AND PELVIS WITH INTRAVENOUS CONTRAST CLINICAL INDICATION: abdominal pain TECHNIQUE: Helically acquired images were obtained of the abdomen and pelvis with intravenous contrast. This CT exam was performed using one or more of the following dose reduction techniques: automated exposure control, adjustment of the mA and/or kV according to patient size, and/or use of iterative reconstruction technique. This report was created using V2contact report generation technology. CONTRAST: IV 100mL Isovue-300 COMPARISON: None. FINDINGS: LOWER THORAX: Unremarkable. Lung bases are clear. No cardiomegaly. No significant pericardial effusion. ABDOMEN: LIVER: Unremarkable. Homogeneous. No focal mass. GALLBLADDER AND BILE DUCTS: There is mild gallbladder wall thickening involving the gallbladder fundus with trace pericholecystic fluid (image 50 series 601). No intra- or extrahepatic biliary ductal dilation. PANCREAS: Unremarkable. No focal cystic or solid mass. SPLEEN: Unremarkable. Normal size without focal cystic or solid mass. ADRENALS: Unremarkable. No nodules. KIDNEYS AND URETERS: Simple cyst of the left kidney, subcentimeter. No required imaging follow-up needed given high likelihood of benign nature. Nonobstructing left renal punctate calculus. Normal renal size and position. STOMACH AND BOWEL: Colonic diverticulosis. No stomach or bowel distention. No focal inflammatory change. PELVIS: APPENDIX: No evidence of acute appendicitis. BLADDER: Unremarkable. REPRODUCTIVE: Unremarkable as visualized. No mass. ABDOMEN and PELVIS: INTRAPERITONEAL SPACE: Unremarkable. No ascites or other fluid collection. No free air. BONES/JOINTS: Operative changes of the lumbar spine. No suspicious lytic or blastic abnormality. SOFT TISSUES: Unremarkable. No discrete abdominal or pelvic wall hernia. VASCULATURE: Atherosclerosis. Abdominal aorta is non-dilated. LYMPH NODES: Unremarkable. No enlarged lymph nodes. CT/Abdomen/Pelvis W IV Cont ONLY IMPRESSION: Mild gallbladder wall thickening with trace pericholecystic fluid suggests possibility of cholecystitis. Recommend correlating with ultrasound and/or HIDA scan. Electronically Signed: Johan Armenta MD ([place]) at 9:12 EST , Service support ,
[2021-07-08] MEDS: morphine 8 MG/ML Syringe IV (07:52)
[2021-07-08] MEDS: 0.9% Normal Saline 1,000 ML 1000 ML IV (07:53)
[2021-07-08] MEDS: Ondansetron 4 MG/2 ML Vial IV (07:53)
[2021-07-08 07:59] LABS: Absolute Lymphocyte Count 2.19 X10^3/uL (0.83-4.51); Absolute Neutrophil Count 9.9 X10^3/uL (2.0-7.7); Basophil# 0.08 X10^3/uL; Basophil% 0.6 % (0-1); Eosinophil# 0.21 X10^3/uL; Eosinophils% 1.6 % (0-5); Hematocrit 45.1 % (40-54); Hemoglobin 15.3 g/dL (13.0-16.5); Lymphocyte # 2.19 X10^3/ul (0.83-4.51); Lymphocyte % 16.2 % (19-41); Mean Corp Hgb Conc 33.9 g/dL (32-36); Mean Corpuscular Hgb 29.5 pg (27.0-32.0); Mean Corpuscular Volume 87.1 fL (80-94); Mean Platelet Vol. 10.4 fl (6.2-12.0); Monocyte# 1.04 X10^3/uL; Monocyte% 7.7 % (0-10); NRBC Flagged by Analyzer 0 % (0-5); Neutrophil # 9.94 X10^3/uL (2.7-7.7); Neutrophil % 73.5 % (47-70); Platelet Count 327 K/mm3 (150-450); RBC Distribution Width CV 12.6 % (11.6-14.6); RBC Distribution Width SD 40.4 fl (35.1-43.9); Red Blood Count 5.18 M/mm3 (4.6-6.2); White Blood Count 13.5 K/mm3 (4.4-11.0)
[2021-07-08] MEDS: Mag Hydrox/Al Hydrox/Simeth 30 ML UDC PO (08:06)
[2021-07-08 08:15] LABS: AST(SGOT) 19 U/L (15-37); Alanine Aminotransfer ALT/SGPT 30 U/L (16-61); Albumin, Serum 3.7 g/dL (3.2-5.0); Alkaline Phosphatase 97 U/L (45-117); Anion Gap 10 (5-15); BUN 12 mg/dL (7-18); Bilirubin, Direct 0.08 mg/dL (0.00-0.30); Chloride 107 mmol/L (98-107); Creatinine, Serum 0.92 mg/dL (0.70-1.30); EST Glomerular Filtration Rate 91 mL/min (>60); Est Glom Filt Rate - Afr Amer 110 mL/min (>60); Globulin 3.9 g/dL (2.2-4.2); Glucose 146 mg/dL (74-106); Lipase 122 U/L (73-393); Potassium 3.2 mmol/L (3.5-5.1); Protein, Total 7.6 g/dL (6.4-8.2); Sodium Level 139 mmol/L (136-145); Troponin-I HS 7 pg/mL (3.0-78.0)
--- NOTE | 2021-07-08 08:18 | EDS_ITS ---
HPI History of Present Illness Chief Complaint: Abd Pain Narrative Narrative: Patient presenting for evaluation secondary to abdominal pain chest pain. Patient reports that he had a similar presentation around a month ago. Patient states that he woke up today and he was having a severe onset of sharp stabbing upper abdominal and lower chest pain. No exacerbating relieving factors. Patient denies being lightheaded or short of breath. Patient denies any history of abdominal surgeries in the past. Patient was admitted for this, did receive a cardiac stress test that was noted to be negative. Patient does endorse that he was drinking alcohol last night but not in excess. This does not seem to be an exertional type pain, does not radiate to his back or down lower in his abdomen or down his legs. Review of systems otherwise negative. PFSH PFSH Medical History Anxiety Chronic back pain GERD (gastroesophageal reflux disease) History of alcohol abuse Hypertension Obesity Tobacco use Home Medications buspirone 5 mg tablet 5 mg PO BID tab 12/09/20 [History Last Taken Unknown] lisinopril 20 mg tablet 20 mg PO DAILY tab 12/09/20 [History Last Taken Unkno wn] tizanidine 4 mg capsule 4 mg PO DAILY 02/15/21 [History Last Taken Unknown] hydroxyzine pamoate 25 mg PO BID PRN 05/31/21 [History Last Taken Unknown] meloxicam 7.5 mg PO DAILY #0 tab 05/31/21 [Rx Last Taken Unknown] nicotine 21 mg TRANSDERMAL DAILY #30 ea 05/31/21 [Rx Last Taken Unknown] omeprazole 40 mg PO BID #60 cap 05/31/21 [Rx Last Taken Unknown] sucralfate 1 g PO 1HR_ACHS #120 tab 05/31/21 [Rx Last Taken Unknown] Allergy/AdvReac Type Severity Reaction Status Date / Time No Known Allergies Allergy Verified 06/28/21 08:27 Family History Mother Cancer Breast CA. 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 substance use type: does not use what type of physical activity do you participate in: other details: stretching frequency: daily ROS ROS ED Constitutional Constitutional ED: Denies chills or fever(s) ENT ENT ED: Denies rhinorrhea Cardiovascular Cardiovascular: Reports chest pain Respiratory/Chest Respiratory/Chest: Denies cough or dyspnea Gastrointestinal Gastrointestinal: Reports abdominal pain Genitourinary Genitourinary ED: Denies dysuria or hematuria Musculoskeletal Musculoskeletal: Denies back pain Integumentary Denies rash Neurologic Neurologic: Denies paresthesias or weakness Psychiatric Psychiatric: Denies depression Endocrine Endocrinology: Denies fatigue Allergic/Immunologic Allergic/Immunologic ED: Denies urticaria EXAM Physical Exam Const Vital Signs: 07/08/21 07:30 Temperature 97.9 F Temperature Source Temporal Pulse Rate 66 Respiratory Rate 24 H Blood Pressure 182/117 H Blood Pressure Mean 138 Pulse Ox 96 Oxygen Delivery Method Room Air Positive well nourished and well developed Constitutional Narrative: Visibly uncomfortable secondary to pain but otherwise not in physiologic distress General Appearance ED: well developed HEENT Reports moist mucous membranes Negative for trauma or tenderness Eyes EOMs intact bilaterally Neck no lymphadenopathy, supple and no JVD Chest Wall inspection of chest normal Resp normal respiratory effort and clear to auscultation bilaterally Cardio regular rate, regular rhythm, no murmurs and peripheral pulses 2+ throughout GI normal to inspection, nondistended, normoactive bowel sounds and no masses GI Narrative: Tenderness noted in the epigastrium without guarding or rebound no palpable masses or pulsatile mass Palpation: soft and tender Back/Spine normal to inspection Extremity normal to inspection Extremity Narrative: Normal distal pulses of the upper and lower extremities bilaterally symmetric General Extremety ED: Negative for tenderness Neuro oriented x3 and no sensory deficits noted Sensorium / Orientation: alert Motor Exam: strength 5/5 throughout Psych mental status grossly normal Skin no rashes or lesions noted MDM MDM MDM Narrative Medical decision making narrative: Patient presented secondary to a sudden onset of abdominal pain. Patient was given pain medication in the emergency department. EKG was noted to be unremarkable. CBC demonstrates leukocytosis at 13.5 with somewhat of a neutrophilic predominance. Chemistry shows mild hypokalemia at 3.2 lactic acid was normal liver enzymes were found to be unremarkable lipase was noted to be 122. Patient had continued pain he was given a GI cocktail which really did not help. CT imaging demonstrates the patient to have wall thickening and trace pericholecystic fluid, so gallbladder ultrasound was obtained which shows wall thickening, pericholecystic fluid, and signs potentially consistent with acute cholecystitis. Patient's pain does correlate to this area. Patient will be given Zosyn, will be discussed with general surgery for definitive management. Lab Data Labs: Laboratory Results - last 24 hr 07/08/21 07/08/21 07/08/21 07:35 07:35 08:01 WBC 13.5 H RBC 5.18 Hgb 15.3 Hct 45.1 MCV 87.1 MCH 29.5 MCHC 33.9 RDW Std Deviation 40.4 RDW Coeff of Aarti 12.6 Plt Count 327 MPV 10.4 Immature Gran % (Auto) 0.400 Neut % (Auto) 73.5 H Lymph % (Auto) 16.2 L [place] % (Auto) 7.7 Eos % (Auto) 1.6 Baso % (Auto) 0.6 Absolute Neuts (auto) 9.9 H Absolute Lymphs (auto) 2.19 Nucleated RBC % 0 Sodium 139 Potassium 3.2 L Chloride 107 Carbon Dioxide 22.0 Anion Gap 10 BUN 12 Creatinine 0.92 Estim Creat Clear Calc 88.80 Est GFR (MDRD) Af Amer 110 Est GFR (MDRD) Non-Af 91 BUN/Creatinine Ratio 13.0 Glucose 146 H Lactic Acid 1.4 Calcium 9.0 Total Bilirubin 0.30 Direct Bilirubin 0.08 AST 19 ALT 30 Alkaline Phosphatase 97 Troponin I High Sens 7 Total Protein 7.6 Albumin 3.7 Globulin 3.9 Lipase 122 Radiography Diagnostic Testing: Clinical Impression(s) from Imaging Studies Abdomen/Pelvis CT 07/08/21 07:45 IMPRESSION: Mild gallbladder wall thickening with trace pericholecystic fluid suggests possibility of cholecystitis. Recommend correlating with ultrasound and/or HIDA scan. Electronically Signed: Johan Armenta MD ([place]) at 9:12 EST , Service support , Gallbladder Ultrasound 07/08/21 09:19 IMPRESSION: Distended gallbladder, wall thickening and subtle pericholecystic fluid visualized findings suggestive of acute cholecystitis recommend clinical correlation. Electronically Signed: Balbir Up MD at 10:26 EST Tel , Service support , EKG Initial EKG: Attestation: I personally reviewed and interpreted this EKG as follows: (Sinus rhythm at 64 with occasional PVCs noted isoelectric ST segments normal T waves no evidence acute ischemia or arrhythmia) Discharge Plan Triage Chief Complaint: Abd Pain ED Provider: Angel Neff Dx/Rx/DC Orders Clinical Impression: Acute cholecystitis Prescriptions: No Action lisinopril 20 mg tablet 20 mg PO DAILY RF: 0 buspirone 5 mg tablet 5 mg PO BID RF: 0 tizanidine [Zanaflex] 4 mg capsule 4 mg PO DAILY RF: 0 hydroxyzine pamoate 25 mg capsule 25 mg PO BID PRN (Reason: Anxiety) RF: 0 sucralfate 1 gram Tablet 1 g PO 1HR_ACHS Qty: 120 RF: 0 nicotine 21 mg/24 hr Patch 24 Hour 21 mg transdermal DAILY Qty: 30 RF: 0 omeprazole 40 mg capsule,delayed release(DR/EC) 40 mg PO BID Qty: 60 RF: 0 meloxicam 7.5 mg Tablet 7.5 mg PO DAILY Qty: 0 RF: 0 Primary Care Provider: Carl Huang NP Referrals: Carl Huang NP, [employer] WORKER-[employer] [Primary Care Provider] - Disposition Disposition: Acute Care Hospital [facility]
[2021-07-08 08:42] LABS: Lactic Acid 1.4 mmol/L (0.4-1.9)
--- NOTE | 2021-07-08 09:19 | US_ITS ---
STUDY: ABDOMINAL ULTRASOUND - RIGHT UPPER QUADRANT REASON FOR VISIT: Male, 56 years old ruq pain TECHNIQUE: Ultrasound evaluation of the right upper quadrant was performed with real-time and static tejada-scale imaging. TECHNICAL QUALITY: Adequate. COMPARISON: 07/08/2021. FINDINGS: Liver: The liver measures 15 cm cm. There is increased heterogeneous echogenicity of the liver. The bile ducts are within normal limits. There is hepatic color flow. The direction of portal flow is hepatopetal. There is no demonstrated mass lesion. Gallbladder: Distended gallbladder with thickening of the wall measuring approximately 6 mm. Generalized tenderness on evaluation. There is suggestion of subtle pericholecystic fluid. Layering sludge visualized within the gallbladder with hyperechoic foci. Common Bile Duct (C.B.D.): The common bile duct measures 3 mm. Pancreas: Normal size of the head, body and tail of the pancreas. There is increased echogenicity of the pancreas. There is no demonstrated pancreatic mass or cyst. Right Kidney: Normal size of the right kidney. The right kidney measures 11.3 x 5.3 x 5.5 cm. Normal renal cortex. The right cortex measures 1.3 cm. There is no demonstrated renal mass or cyst. There is no right hydronephrosis. US/Gallbladder IMPRESSION: Distended gallbladder, wall thickening and subtle pericholecystic fluid visualized findings suggestive of acute cholecystitis recommend clinical correlation. Electronically Signed: Balbir Up MD at 10:26 EST Tel , Service support ,
--- NOTE | 2021-07-08 11:07 | HP.PCM.SX_ITS ---
HPI - General HPI Narrative JESSICA SINGH, is a 56 M who presents to the ER due to abdominal pain. Work-up of CT abdomen pelvis and ultrasound does show acute cholecystitis some thickening of the gallbladder wall small mild pericholecystic fluid, sludge in the gallbladder, normal LFTs. Patient's white blood count is 13.5 patient is gi caro Zosyn IV in the ER. Patient is not the best historian due to pain currently patient also does drink about a 12 pack of beer every other day. Patient has not been also taking his prescribed medication recently. PFSH Medical History Anxiety Chronic back pain GERD (gastroesophageal reflux disease) History of alcohol abuse Hypertension Obesity Tobacco use Home Medications buspirone 5 mg tablet 5 mg PO BID tab 12/09/20 [History Last Taken Unknown] lisinopril 20 mg tablet 20 mg PO DAILY tab 12/09/20 [History Last Taken Unknown] tizanidine 4 mg capsule 4 mg PO DAILY 02/15/21 [History Last Taken Unknown] hydroxyzine pamoate 25 mg PO BID PRN 05/31/21 [History Last Taken Unknown] meloxicam 7.5 mg PO DAILY #0 tab 05/31/21 [Rx Last Taken Unknown] nicotine 21 mg TRANSDERMAL DAILY #30 ea 05/31/21 [Rx Last Taken Unknown] omeprazole 40 mg PO BID #60 cap 05/31/21 [Rx Last Taken Unknown] sucralfate 1 g PO 1HR_ACHS #120 tab 05/31/21 [Rx Last Taken Unknown] Allergy/AdvReac Type Severity Reaction Status Date / Time No Known Allergies Allergy Verified 06/28/21 08:27 Family History Mother Cancer Breast CA. 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 substance use type: does not use what type of physical activity do you participate in: other details: stretching frequency: daily Vital Signs Vital Signs Vital Signs: 07/08/21 07:30 Temperature 97.9 F Temperature Source Temporal Pulse Rate 66 Respiratory Rate 24 H Blood Pressure 182/117 H Blood Pressure Mean 138 Pulse Ox 96 Oxygen Delivery Method Room Air Weight Weight: 225 lb Body Mass Index (BMI) 34.2 Physical Exam Const alert, oriented x3 and no apparent distress HEENT normocephalic and head/scalp atraumatic Resp normal respiratory effort Cardio Rate: tachycardic GI soft to palpation; Negative for non-distended GI Narrative: Voluntary guarding, equivocal rebound Palpation: tender epigastric and RUQ; Negative for guarding Extremity no clubbing, cyanosis or edema Neuro CN's II-XII intact bilaterally Psych mental status grossly normal Results Lab / Micro Data Result Diagrams: 07/08/21 07:35 07/08/21 07:35 Labs: Laboratory Results - last 24 hr 07/08/21 07:35: WBC 13.5 H, RBC 5.18, Hgb 15.3, Hct 45.1, MCV 87.1, MCH 29.5, MCHC 33.9, RDW Std Deviation 40.4, RDW Coeff of Aarti 12.6, Plt Count 327, MPV 10.4, Immature Gran % (Auto) 0.400, Neut % (Auto) 73.5 H, Lymph % (Auto) 16.2 L, Gila % (Auto) 7.7, Eos % (Auto) 1.6, Baso % (Auto) 0.6, Absolute Neuts (auto) 9.9 H, Absolute Lymphs (auto) 2.19, Nucleated RBC % 0 07/08/21 07:35: Sodium 139, Potassium 3.2 L, Chloride 107, Carbon Dioxide 22.0, Anion Gap 10, BUN 12, Creatinine 0.92, Estim Creat Clear Calc 88.80, Est GFR (MDRD) Af Amer 110, Est GFR (MDRD) Non-Af 91, BUN/Creatinine Ratio 13.0, Glucose 146 H, Calcium 9.0, Total Bilirubin 0.30, Direct Bilirubin 0.08, AST 19, ALT 30, Alkaline Phosphatase 97, Troponin I High Sens 7, Total Protein 7.6, Albumin 3.7, Globulin 3.9, Lipase 122 07/08/21 08:01: Lactic Acid 1.4 Radiology Impression Abdomen/Pelvis CT 07/08/21 07:45 IMPRESSION: Mild gallbladder wall thickening with trace pericholecystic fluid suggests possibility of cholecystitis. Recommend correlating with ultrasound and/or HIDA scan. Electronically Signed: Johan Armenta MD (Brooks) at 9:12 EST , Service support , Gallbladder Ultrasound 07/08/21 09:19 IMPRESSION: Distended gallbladder, wall thickening and subtle pericholecystic fluid visualized findings suggestive of acute cholecystitis recommend clinical correlation. Electronically Signed: Balbir Up MD at 10:26 EST Tel , Service support , Assessment & Plan Assessment/Plan (1) Acute cholecystitis: PLAN: Reviewed the anatomy with the patient and discussed the procedure: laparoscopic cholecystectomy with possible cholangiograms, possible open. Review risks including but not limited to bleeding, infection, hernia, bile leak, retained gallstones requiring another procedure ERCP- Endoscopic Retrograde Cholangiopancreatography, injury to another organ (bile ducts, common bile duct, small bowel, etc.) require transfer to a tertiary care facility and conversion to an open procedure. All questions were answered. Peace Anderson M.D. Pager: [phone] [facility] [address] [place] [address] [place] [address] Office: [phone] Procedure Criteria Type of Procedure Procedure Type: Elective Elective Risks - COVID COVID Risk Discussion: The surgeon/proceduralist and patient have discussed in detail the risk of exposure to and/or potential harm posed by the COVID-19 virus with having a surgery/procedure at this time versus the risk of delaying the surgery/procedure. It is not possible to know either the risk of delaying the surgery or procedure or chance of getting an infection with perfect accuracy, but a joint decision was made between the patient and the surgeon/proceduralist to proceed at this time with the scheduled surgery/procedure as indicated on the consent form.
[2021-07-08] MEDS: HYDROmorphone 1 MG/ML Syringe IV (11:22)
--- NOTE | 2021-07-08 11:50 | RAD_ITS ---
STUDY: INTRAOPERATIVE CHOLANGIOGRAM. REASON FOR EXAM: Male, 56 years old. PAIN FLUOROSCOPY TIME (if supplied): ( 24.5 seconds ) minutes/seconds. A cine loop of 78 images was submitted. TECHNIQUE: An intraoperative cholangiogram was performed by the surgeon. Imaging was submitted. COMPARISON: None. FINDINGS: The visualized intrahepatic and extrahepatic biliary ducts are unremarkable. There is free flow of contrast into the duodenum. RAD/Cholangiogram/ O R,Initial IMPRESSION: Unremarkable intraoperative cholangiogram. Electronically Signed: Ryan Flores MD at 8:43 EST , Service support ,
[2021-07-08] MEDS: 0.9% Normal Saline 1,000 ML 120 ML IV ×2 (12:41→16:35)
[2021-07-08] MEDS: Potassium Chloride 10mEq/100mL 10 MEQ/100 ML IV.SOLN. 100 MEQ IV BOLUS ×4 (12:47→16:00)
--- NOTE | 2021-07-08 14:20 | GALL_PTH ---
PATIENT: JESSICA SINGH LOC: MS2 U#:[id number] AGE/SX: 56/M ROOM: [facility] RE07/08/[address]: Dr. Peace Anderson MD : 1965 BED: 1 DIS: 07/08/2021 SPEC #: [id number] RECD: 07/12/21 07:04 STATUS: ZE REKathi #: [id number] CIERRA: 07/08/21 14:[address]: Peace Anderson DEPT: SURGICAL PATHOLOGY RECD BY: Geni Longoria ENTERED: 07/12/21 09:34 SP TYPE: [facility] DR: Carl Huang, STEPHANIA Tissues: Gallbladder, NOS Procedures: Surgery Specimen Level III HEADER OPERATION: Laparoscopic cholecystectomy with IOC PRE-OP DIAGNOSIS: Acute cholecystitis TISSUE SUBMITTED: Gallbladder MICROSCOPIC DIAGNOSIS Gallbladder, cholecystectomy: Acute and chronic cholecystitis. AM:ashwin 07/13/2021 MICROSCOPIC DESCRIPTION Slides are reviewed. GROSS DESCRIPTION Received is one container labeled with the patient's name and designated gallbladder. The specimen consists of a previously, partially opened gallbladder measuring 9 cm in length and up to 4 cm in diameter. The external surface is pink-smallwood, smooth and glistening for the most part. Focally it is granular, hemorrhagic and contains cautery artifact. The gallbladder contains a small amount of blood clot. No stones are identified in the container or in the gallbladder. The mucosa is congested. The gallbladder wall measures up to 1 cm in thickness. Increased amount of subserosal fat is noted. Occupational Hygienist sections from the gallbladder and the cystic duct are submitted in one cassette. / SJ:ashwin 07/12/21 TC:2 CPT: 30328
--- NOTE | 2021-07-08 15:36 | PCM.OPRPT ---
Problems Associated Problem List Diagnoses (1) Acute cholecystitis: Report of Operation Date of Procedure: 07/08/21 Pre-Operative Diagnosis: Acute cholecystitis Post-Operative Diagnosis: Same Surgery/Procedure Performed:: Laparoscopic cholecystectomy with cholangiograms Surgeon: Peace Anderson Type of Anesthesia: General/Supplemental Anesthesiologist: Orlando Cardozo Special Medications: Zosyn 3.375 g IV every 8 hours for acute cholecystitis Specimen's removed: Gallbladder Description of Procedure: Indications this is a 56 year-old male who developed abdominal pain/nausea/vomiting and on workup was found to have cholelithiasis, acute cholecystitis with a normal common bile duct. Laparoscopic cholecystectomy was elected. Description procedure: The patient was placed on operating table in supine position. General Anesthesia was induced. A timeout was completed verifying correct patient, procedure, site, position and special equipment prior to beginning procedure. The abdomen was prepped and draped in usual sterile fashion. An incision was made in the natural skin line above the umbilicus. The fascia was elevated and incised. The peritoneum was elevated and incised. Entry into the peritoneum was confirmed visually and no bowel was noted in the vicinity of the incision. Patient was noted to have mesh at his umbilicus. Deleon trocar was placed. The abdomen was insufflated with carbon dioxide to a pressure of 12-15 mmHg. Patient tolerated insufflation well. The laparoscope was then inserted and abdomen inspected. No injuries from initial trocar placement were noted. Additional trochars were then inserted in the following locations 5 mm trocar in the epigastrium and 2 more 5 mm trochars along the right costal margin. The abdomen was inspected no abnormalities were found. The table is placed in reverse Trendelenburg position with the right side up. The adhesions between the gallbladder and omentum were lysed sharply. The gallbladder was noted to be tense. Aspiration needle was used to decompress to allow the fundus to be able to be grasped. The dome of the gallbladder was grasped with atraumatic grasper passed through the lateral port and retracted over the dome of the liver. Infundibulum was then grasped with atraumatic grasper through the midclavicular port and retracted to the right lower quadrant. This maneuver exposed Calot's triangle. The peritoneum overlying the gallbladder infundibulum was then incised and cystic duct and artery identified and circumferentially dissected. Veliz catheter was used for cholangiograms. The cholangiogram showed good filling of the common bile duct into the duodenum with no filling defects, good filling of the right and left bile ducts as well. The cystic duct and artery were then doubly clipped and divided close to the gallbladder. The gallbladder then dissected from its peritoneal attachments by electrocautery. Hemostasis was checked and the gallbladder and contained stones were removed using the endoscopic retrieval bag through the umbilical port. The gallbladder is passed off table as specimen. The gallbladder fossa was copiously irrigated with saline and hemostasis obtained. There is no evidence of bleeding from the gallbladder fossa or cystic artery leakage of bile from the cystic duct stump. Secondary trochars removed under direct vision. No bleeding was noted the trocar sites. The laparoscope was withdrawn and umbilical trocar removed. The abdomen was allowed to collapse. The fascia of the 12 mm trocar was closed with a [id number] 0 Vicryl suture. The skin was closed with sutures of 4-0 Monocryl and Steri-Strips. The orogastric tube was removed and the patient was extubated. The patient tolerated procedure well and was taken to the postanesthesia care unit in stable condition. Complications none
[2021-07-08] MEDS: Bupivacaine Mpf 0.5% 30 ML VIAL (15:38)
--- NOTE | 2021-07-08 17:26 | EX.PCM.DISCH ---
Discharge Instructions Diet Discharge Diet: Light diet - advance as tolerated Activity Discharge Activity: May Not Drive (while taking narcotic pain medications.) May shower in (days): 1 Lifting Restrictions: no lifting >20 lbs x 2 wks, no strenuous exercise for 4 wks Dressing / Incision Call your doctor if your incision/area has: Continuous Slow Oozing, Sudden Increased Bleeding, Increased Pain/ Swelling, Increased Redness, Foul Smelling Discharge and Swelling at the incision site Call your doctor if you observe: Fever of 101 or Higher Remove Dressing in: 2 days Cleanse incision/area with: Soap & Water Additional Dressing/Incision Instructions:: Steri-Strips will fall off in 7 to 10 days, if they do not fall off okay to remove after 10 days. Follow Up Care Please Follow Up With: Peace Anderson MD When: Call the office for a follow-up appointment 2 weeks; after 5 PM and on the weekends call [phone] with any concerns. Test Results: Test results from this visit will be discussed in further detail at your follow-up appointment, if applicable. Discharge Plan Admission Admit Date/Time: 07/08/21 11:20 Attending Provider: Peace Anderson Primary Care Provider: Carl Huang NP Discharge Orders/Prescriptions Prescriptions: New oxycodone-acetaminophen 5-325 mg tablet 1 - 2 tab PO Q6H PRN (Reason: pain) 3 Days Qty: 14 RF: 0 tamsulosin [Flomax] 0.4 mg capsule 0.4 mg PO DAILY Qty: 7 RF: 0 Continued lisinopril 20 mg tablet 20 mg PO DAILY RF: 0 buspirone 5 mg tablet 5 mg PO BID RF: 0 tizanidine [Zanaflex] 4 mg capsule 4 mg PO DAILY RF: 0 hydroxyzine pamoate 25 mg capsule 25 mg PO BID PRN (Reason: Anxiety) RF: 0 sucralfate 1 gram Tablet 1 g PO 1HR_ACHS Qty: 120 RF: 0 nicotine 21 mg/24 hr Patch 24 Hour 21 mg transdermal DAILY Qty: 30 RF: 0 omeprazole 40 mg capsule,delayed release(DR/EC) 40 mg PO BID Qty: 60 RF: 0 meloxicam 7.5 mg Tablet 7.5 mg PO DAILY Qty: 0 RF: 0 Referrals / Follow Up: Carl Huang FINANCIAL SERVICES REPRESENTATIVE, FINANCIAL SERVICES REPRESENTATIVE-C [Primary Care Provider] - Disposition Disposition (needs filled in before D/C Order can be placed): Home, Self Care
[2021-07-08 19:13] LABS: Magnesium 2.1 mg/dL (1.6-2.6)
== END 2021-07-08 19:41 | disposition home or self-care (01) ==
LOC: ED 10:56 → SDC 11:25 → MS2 11:45 → ED 14:39 → SDC 14:39 → MS2 14:40 → SDC 14:42 → MS2 14:42
PROVIDERS: Admitting Provider Surgery; Emergency Provider Emergency Medicine; PCP Nurse Practitioner Primary Care; Visit Provider Surgery
PROC: (CPT 47610; principal; 2021-07-08 14:00)
DX: K81.2 Acute cholecystitis with chronic cholecystitis (principal); I10 Essential (primary) hypertension; F17.210 Nicotine dependence, cigarettes, uncomplicated; K21.9 Gastro-esophageal reflux disease without esophagitis; F41.9 Anxiety disorder, unspecified; E66.9 Obesity, unspecified; G89.29 Other chronic pain; I49.3 Ventricular premature depolarization; F10.10 Alcohol abuse, uncomplicated; Z79.899 Other long term (current) drug therapy; Z68.34 Body mass index [BMI] 34.0-34.9, adult
CPT/HCPCS: 47563; 74177; 74300; 76000; 76705; 80048; 80076; 83605; 83690; 83735; 84484; 85025; 87426; 88304; 93005; 96365; 96375; 96376; 99285; J7030; Q9967; A4216; J2405

== ENCOUNTER 2021-07-19 22:51 | Emergency (ER) | payer MEDICAID, SELFPAY ==
--- NOTE | 2021-07-08 07:34 | EKG12_ITS ---
Test Reason : ABD PAIN Blood Pressure : / mmHG Vent. Rate : 064 BPM Atrial Rate : 064 BPM P-R Int : 134 ms QRS Dur : 100 ms QT Int : 446 ms P-R-T Axes : 027 -18 016 degrees QTc Int : 460 ms Sinus rhythm with occasional Premature ventricular complexes Otherwise normal ECG Confirmed by LESA JENSEN, SYED ([id number]), online editor JONATHAN MACK ([id number]) on 07/21/2021 10:29:04 AM Referred By: ALEXA Confirmed By:SYED MCFADDEN MD
[2021-07-19 22:51] VITALS: BP 215/100; PULSE 106; RESP 18; TEMP 36.2; O2SAT 96; BMI 29.2
--- NOTE | 2021-07-19 23:08 | CT_ITS ---
STUDY: CT ABDOMEN AND PELVIS WITH CONTRAST REASON FOR EXAM: Male, 56 years old. abdominal pain RADIATION DOSAGE (If Supplied By Facility): CTDIvol = ( 16.61 ) mGy, DLP = ( 1168.95 ) mGycm TECHNIQUE: Transaxial images were obtained from the dome of the diaphragm to the symphysis pubis without oral contrast. IV 100mL Isovue-300 was administered. Sagittal and coronal images were reconstructed. Individualized dose optimization techniques were used for this CT. COMPARISON: CT abdomen pelvis from 07/08/2021 FINDINGS: The visualized lung bases are unremarkable. The visualized portions of the heart are within normal limits. Normal liver. Interval cholecystectomy. Normal spleen. Normal pancreas. Normal bilateral adrenal glands. Normal right kidney. Punctate nonobstructive left renal calculus. Tiny subcentimeter left renal hypodensity which is too small to characterize likely small cyst. No further specific follow up recommended. Normal visualized stomach. Normal small intestine. There are multiple colonic diverticula consistent with diverticulosis. The appendix is visualized and appears normal. Normal abdominal aorta. Normal inferior vena cava. Normal retroperitoneum. Normal urinary bladder. Normal abdominal wall. Status post posterior fixation of L3-L4. CT/Abdomen/Pelvis W IV Cont ONLY IMPRESSION: Negative enhanced CT of the abdomen and pelvis for acute abnormality. Interval cholecystectomy. Electronically Signed: Haseeb Gonzalez MD at 0:34 EST Tel , Service support ,
--- NOTE | 2021-07-19 23:10 | EDS_ITS ---
HPI History of Present Illness Chief Complaint: Abd Pain Informant: patient Narrative Narrative: 56-year-old male presenting to the emergency department with abdominal pain. Patient states that he is status post cholecystectomy on 07/08/2021. States that this is the same pain that he had that brought him to the emergency department that day. He reports that when he looks back he has been experiencing intermittent pain like this for 6 months. He states that he has been pain-free up until about 2 hours prior to arrival when he developed pain in his epigastrium right upper quadrant. He states it radiates to his flank. He notes normal bowel movements. He has been eating and drinking normally. No reported fevers. Urinating fine. PFSH PFSH Medical History Anxiety Chronic back pain GERD (gastroesophageal reflux disease) History of alcohol abuse Hypertension Obesity Tobacco use Home Medications buspirone 5 mg tablet 5 mg PO BID tab 12/09/20 [History Last Taken Unknown] lisinopril 20 mg tablet 20 mg PO DAILY tab 12/09/20 [History Last Taken Unknown] tizanidine 4 mg capsule 4 mg PO DAILY 02/15/21 [History Last Taken Unknown] hydroxyzine pamoate 25 mg PO BID PRN 05/31/21 [History Last Taken Unknown] meloxicam 7.5 mg PO DAILY #0 tab 05/31/21 [Rx Last Taken Unknown] nicotine 21 mg TRANSDERMAL DAILY #30 ea 05/31/21 [Rx Last Taken Unknown] omeprazole 40 mg PO BID #60 cap 05/31/21 [Rx Last Taken Unknown] sucralfate 1 g PO 1HR_ACHS #120 tab 05/31/21 [Rx Last Taken Unknown] oxycodone-acetaminophen 1 - 2 tab PO Q6H PRN 3 Days #14 tab 07/08/21 [Rx Last Taken Unknown] tamsulosin [Flomax] 0.4 mg PO DAILY #7 cap 07/08/21 [Rx Last Taken Unknown] dicyclomine 20 mg PO TIDAC PRN #30 capsule 07/20/21 [Rx Last Taken Unknown] lorazepam 1 mg PO TID PRN #10 tablet 07/20/21 [Rx Last Taken Unknown] tizanidine 4 mg DAILY 07/20/21 [History Last Taken Unknown] Allergy/AdvReac Type Severity Reaction Status Date / Time No Known Allergies Allergy Verified 07/19/21 23:36 Family History Mother Cancer Breast CA. 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 substance use type: does not use what type of physical activity do you participate in: other details: stretching frequency: daily ROS ROS ED Constitutional Constitutional ED: Denies chills or weight loss Eyes Eyes: Denies change in vision or diplopia ENT ENT ED: Denies ear pain, rhinorrhea or sore throat Cardiovascular Cardiovascular: Denies chest pain, orthopnea, palpitations or racing heartbeat Respiratory/Chest Respiratory/Chest: Denies cough, dyspnea or orthopnea Gastrointestinal Gastrointestinal: Reports abdominal pain; Denies diarrhea, nausea or vomiting Genitourinary Genitourinary ED: Denies dysuria, hematuria or urinary frequency Musculoskeletal Musculoskeletal: Denies arthralgias or myalgias Integumentary Denies abscess or rash Neurologic Neurologic: Denies headache(s) or weakness Psychiatric Psychiatric: Denies anxiety, depression, suicidal ideation or suicidal thoughts Endocrine Endocrinology: Denies polydipsia, polyphagia or polyuria Allergic/Immunologic Allergic/Immunologic ED: Denies mouth swelling, tongue swelling or urticaria EXAM Physical Exam Const Vital Signs: 07/19/21 22:51 07/20/21 01:18 Temperature 97.1 F L Temperature Source Temporal Pulse Rate 106 H Respiratory Rate 18 20 H Blood Pressure 215/100 H 119/79 Blood Pressure Mean 138 92 Pulse Ox 96 Oxygen Delivery Method Room Air Positive well nourished and well developed General Appearance ED: well developed HEENT Reports normocephalic, head/scalp atraumatic, TM's clear and moist mucous membranes Negative for trauma Tympanic Membrane ED: Yes TM's clear Eyes PERRL and EOMs intact bilaterally Neck no lymphadenopathy, supple and no JVD Resp normal respiratory effort and clear to auscultation bilaterally Cardio regular rate, regular rhythm and no murmurs GI Auscultation: normoactive bowel sounds Palpation: soft, tender epigastric and RUQ and guarding; Negative for rebound tenderness present Back/Spine no CVA tenderness and normal ROM Extremity normal to inspection General Extremety ED: Negative for edema General Extremity: Negative for edema Neuro oriented x3 and CN's II-XII intact bilaterally Sensorium / Orientation: alert Motor Exam: strength 5/5 throughout Psych mental status grossly normal Mood & Affect: Negative for depressed or tearful Skin no rashes or lesions noted and no wounds MDM MDM MDM Narrative Medical decision making narrative: Patient's white count elevated at 15.8. CMP showed a glucose of 114. Lipase of 91 with an amylase of 84. ALT slightly elevated at 71. CT of the abdomen pelvis was obtained which does not demonstrate anything acute. Patient received Dilaudid Zofran and IV fluids. On repeat examination he states this pain is more around his umbilicus and has not resolved. He received a dose of Ativan, GI cocktail, and Bentyl. He states that this has made his pain better. Case was discussed with on-call surgeon. From a surgical standpoint I do not think there is anything acute here. He is yet to follow-up postoperatively because he lost his information. I can provide the contact information for him. He may benefit from gastroenterology eval. I will write for some Ativan and some Bentyl. He is currently in pain management. Lab Data Attestation: I reviewed the patient's lab results. Labs: Laboratory Results - last 24 hr 07/19/21 07/19/21 23:26 23:26 WBC 15.8 H RBC 5.59 Hgb 16.5 Hct 48.5 MCV 86.8 MCH 29.5 MCHC 34.0 RDW Std Deviation 42.5 RDW Coeff of Aarti 13.3 Plt Count 354 MPV 9.8 Immature Gran % (Auto) 0.900 Neut % (Auto) 68.6 Lymph % (Auto) 19.6 Gilliam % (Auto) 9.5 Eos % (Auto) 0.6 Baso % (Auto) 0.8 Absolute Neuts (auto) 10.8 H Absolute Lymphs (auto) 3.09 Nucleated RBC % 0 Sodium 139 Potassium 3.8 Chloride 107 Carbon Dioxide 21.0 Anion Gap 11 BUN 17 Creatinine 1.04 Estim Creat Clear Calc 78.56 Est GFR (MDRD) Af Amer 96 Est GFR (MDRD) Non-Af 79 BUN/Creatinine Ratio 16.3 Glucose 114 H Calcium 8.9 Total Bilirubin 0.40 Direct Bilirubin 0.11 AST 23 ALT 71 H Alkaline Phosphatase 91 Total Protein 7.6 Albumin 3.8 Globulin 3.8 Amylase 84 Lipase 91 Radiography Diagnostic Testing: Clinical Impression(s) from Imaging Studies Abdomen/Pelvis CT 07/19/21 23:08 IMPRESSION: Negative enhanced CT of the abdomen and pelvis for acute abnormality. Interval cholecystectomy. Electronically Signed: Haseeb Gonzalez MD at 0:34 EST Tel , Service support , Discharge Plan Triage Chief Complaint: Abd Pain ED Provider: Jacob Castellon Dx/Rx/DC Orders Clinical Impression: Abdominal pain, acute, S/P laparoscopic cholecystectomy Instructions: Abdominal Pain Prescriptions: New lorazepam [lorazepam] 1 MG tablet 1 mg PO TID PRN (Reason: Abdominal Pain) Qty: 10 RF: 0 dicyclomine 10 MG capsule 20 mg PO TIDAC PRN (Reason: Abdominal Pain) Qty: 30 RF: 0 No Action lisinopril 20 mg tablet 20 mg PO DAILY RF: 0 buspirone 5 mg tablet 5 mg PO BID RF: 0 tizanidine [Zanaflex] 4 mg capsule 4 mg PO DAILY RF: 0 hydroxyzine pamoate 25 mg capsule 25 mg PO BID PRN (Reason: Anxiety) RF: 0 sucralfate 1 gram Tablet 1 g PO 1HR_ACHS Qty: 120 RF: 0 nicotine 21 mg/24 hr Patch 24 Hour 21 mg transdermal DAILY Qty: 30 RF: 0 omeprazole 40 mg capsule,delayed release(DR/EC) 40 mg PO BID Qty: 60 RF: 0 meloxicam 7.5 mg Tablet 7.5 mg PO DAILY Qty: 0 RF: 0 oxycodone-acetaminophen 5-325 mg tablet 1 - 2 tab PO Q6H PRN (Reason: pain) 3 Days Qty: 14 RF: 0 tamsulosin [Flomax] 0.4 mg capsule 0.4 mg PO DAILY Qty: 7 RF: 0 tizanidine 4 mg tablet 4 mg DAILY RF: 0 Primary Care Provider: Carl Huang NP Referrals: Amari Mayorga DO [STAFF PHYSICIAN] - As soon as possible (For gastroenterology evaluation) Peace Anderson MD [STAFF PHYSICIAN] - As soon as possible (For postoperative care) Carl Huang NP, [employer]ATOR-C [Primary Care Provider] - Disposition Disposition: Home, Self Care
[2021-07-19] MEDS: HYDROmorphone 1 MG/ML Syringe IV (23:33)
[2021-07-19] MEDS: 0.9% Normal Saline 1,000 ML 1000 ML IV (23:33)
[2021-07-19] MEDS: Ondansetron 4 MG/2 ML Vial IV (23:33)
[2021-07-19 23:46] LABS: Absolute Lymphocyte Count 3.09 X10^3/uL (0.83-4.51); Absolute Neutrophil Count 10.8 X10^3/uL (2.0-7.7); Basophil# 0.13 X10^3/uL; Basophil% 0.8 % (0-1); Eosinophil# 0.09 X10^3/uL; Eosinophils% 0.6 % (0-5); Hematocrit 48.5 % (40-54); Hemoglobin 16.5 g/dL (13.0-16.5); Lymphocyte # 3.09 X10^3/ul (0.83-4.51); Lymphocyte % 19.6 % (19-41); Mean Corpuscular Hgb 29.5 pg (27.0-32.0); Mean Corpuscular Volume 86.8 fL (80-94); Mean Platelet Vol. 9.8 fl (6.2-12.0); Monocyte% 9.5 % (0-10); NRBC Flagged by Analyzer 0 % (0-5); Neutrophil # 10.83 X10^3/uL (2.7-7.7); Neutrophil % 68.6 % (47-70); Platelet Count 354 K/mm3 (150-450); RBC Distribution Width CV 13.3 % (11.6-14.6); RBC Distribution Width SD 42.5 fl (35.1-43.9); Red Blood Count 5.59 M/mm3 (4.6-6.2); White Blood Count 15.8 K/mm3 (4.4-11.0)
[2021-07-19 23:54] LABS: AST(SGOT) 23 U/L (15-37); Alanine Aminotransfer ALT/SGPT 71 U/L (16-61); Albumin, Serum 3.8 g/dL (3.2-5.0); Alkaline Phosphatase 91 U/L (45-117); Amylase 84 U/L (25-115); Anion Gap 11 (5-15); BUN 17 mg/dL (7-18); BUN/Creat Ratio 16.3 RATIO (10-20); Bilirubin, Direct 0.11 mg/dL (0.00-0.30); Calcium,Total 8.9 mg/dL (8.5-10.1); Chloride 107 mmol/L (98-107); Creatinine, Serum 1.04 mg/dL (0.70-1.30); EST Glomerular Filtration Rate 79 mL/min (>60); Est Glom Filt Rate - Afr Amer 96 mL/min (>60); Estimated Creatinine Clearance 78.56 ml/min; Globulin 3.8 g/dL (2.2-4.2); Glucose 114 mg/dL (74-106); Lipase 91 U/L (73-393); Potassium 3.8 mmol/L (3.5-5.1); Protein, Total 7.6 g/dL (6.4-8.2); Sodium Level 139 mmol/L (136-145)
[2021-07-20] MEDS: Dicyclomine 20 MG/2 ML Vial IM (01:16)
[2021-07-20] MEDS: LORazepam 2 MG/ML Syringe 1 MG IV (01:16)
[2021-07-20] MEDS: Mag Hydrox/Al Hydrox/Simeth 30 ML UDC PO (01:16)
[2021-07-20 01:18] VITALS: BP 119/79; RESP 20
[2021-07-20 02:44] VITALS: PULSE 74; RESP 16; O2SAT 97
== END 2021-07-20 02:46 | disposition home or self-care (01) ==
PROVIDERS: Emergency Provider Emergency Medicine; PCP Nurse Practitioner Primary Care; Visit Provider Emergency Medicine
DX: R10.9 Unspecified abdominal pain (principal); I10 Essential (primary) hypertension; M54.9 Dorsalgia, unspecified; G89.29 Other chronic pain; F17.210 Nicotine dependence, cigarettes, uncomplicated; Z90.49 Acquired absence of other specified parts of digestive tract; Z79.899 Other long term (current) drug therapy
CPT/HCPCS: 74177; 80048; 80076; 82150; 83690; 85025; 96361; 96372; 96374; 96375; 99284; J7030; A4216; J2405

== ENCOUNTER 2021-08-04 09:22 | Outpatient (RCR) | payer MEDICAID, SELFPAY ==
--- NOTE | 2021-08-17 09:54 | HP.OTFCE_ITS ---
Floor (Occasional 1-33% of Day): 50# Floor (Frequent 34-66% of Day): 25# Floor (Constant 67-100% of Day): NA Floor PDL: Medium Knee (Occasional 1-33% of Day): 50# Knee (Frequent 34-66% of Day): 25# Knee (Constant 67-100% of Day): NA Knee PDL: Medium Waist (Occasional 1-33% of Day): 45# Waist (Frequent 34-66% of Day): 22# Waist (Constant 67-100% of Day): NA Waist PDL: Medium Shoulder (Occasional 1-33% of Day): 35# Shoulder (Frequent 34-66% of Day): 18# Shoulder (Constant 67-100% of Day): NA Shoulder PDL: Light-Medium Overhead (Occasional 1-33% of Day): 30# Overhead (Frequent 34-66% of Day): 15# Overhead (Constant 67-100% of Day): NA Overhead PDL: Light-Medium Comments: Due to back pain a constant lift of 67-100% of a 8 hour day is not applicable Bending: Frequent Ability (34-66% of day) Squatting: Occasional Ability (1-33% of day) Kneeling: Occasional Ability (1-33% of day) Reaching out: Frequent Ability (34-66% of day) Reaching up: Frequent Ability (34-66% of day) Sitting: Frequent Ability (34-66% of day) Walking: Occasional Ability (1-33% of day) Standing: Occasional Ability (1-33% of day) Comments: with shifting his body weight Duration Sedentary Sedentary Light Light Light Medium Medium Medium Heavy Very Heavy Heavy Occasional (0-33% of day) Frequent (34-66% of day) Constant (67-100% of day) 10 # Negligible Negligible 15 # 8 # Negligible 20 # 10# Negli. 35 # 18 # 7 # 50 # 25 # 10 # 75 # 100 # >100 # 38 # 50 # >50 # 15 # 20 # >20 # Weight:: 92.986 kg Hand Dominance: right Medical History Including Restrictions: This 56 year old male was seen for FCE- pt states he was in good health until 10 years ago he started having tingling in LE- pt states he dealt with this for about 2 years and then had back sx. 8 years ago (lumbar fusion)- pt states after they sx pt states after a year. pt states he has been with pain mtg. for about a year and year and a half. pt states he had different shots, ablations. without success in treatments. pt states he did see Physical therapy about a year ago but was not helpful. pt states he is now a pt of dr. Ronquillo for about a year ago. Pt states this did not rec'd sx. Social: pt does not exercise on a regular basis. pt does smoke every day smoker; Alcohol frequently: past surgical history bilateral elbow sx (pt is unsure what for) double hernia surgery- hx partial tip amputation of finger. medication Tramadol, aspirin, Buspirone, hydroxysine, lisinopril, meloxicam, omeprazole, sucralfate. x-ray taken on 10/05/20- report Degenerative changes of the spine mild anterior spondylosis at L3-L4 normal disc space heights. s/p laminectomy and interpedicular screw and da fixation L3-L4 level. no MRI report sent with paperwork Diagnoses: Lumbar Facet Join syndrome dx in 2020. S/p Lumbar fusion. Degenerative disc disease. Hypertension dx in early . GERD. Anxiety Symptoms: Low back pain. Bilateral hip pain. 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 Pt states he was unable to drive because he is unable to stay in the same position for any time. Pt states the last 4 months he was not getting called to drive. 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 pt states he was working for a [employer]) on and off for [employer]- and last worked the in 2003. 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 states 3 entry steps with two hand rails. It does have a ramp. Pt states he has tub shower- pt states he put a stool in the shower. Pt states he lives a lone. has friend does cleaning/laundry and will help with grocery shopping. 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 pt drives ind. Physical Examination: pts resting heart rate 92 ROM: pt demo all UB and LB WFL. slow motion with lumbar flexion but able to get to 80* flex. slight limited lumbar ext but WFL Strength: pt demo with good strength at MMT 5/5 grossly throughout Right [employer] Supervisor Strength Average: 60.00 Right [employer] Supervisor Strength Percentile: .8% Left [employer] Supervisor Strength Average: 80.00 Left [employer] Animal Facility Supervisor Strength Percentile: 11% Right Lateral Pinch Average: 18.00 Right Lateral Pinch Percentile: 25% Left Lateral Pinch Average: 18.00 Left Lateral Pinch Percentile: 50% Right Tripod Pinch Average: 10.00 Right Tripod Pinch Percentile: <10% Left Tripod Pinch Average: 15.33 Left Tripod Pinch Percentile: 25% Sensation: denies Fine Motor: denies Balance: pt demon good- normal balance Bending: pt demo the ability to bend forward 3/3x, 10/10x, pt attempted 10/10 rapidly (speed did not increase). low back pain but heart rate after 10/10 times was 87. heart rate after 10/10 rapidly heart rate was 111. pt can bend forward on frequent ability Squatting: pt demo the ability to squat 3/3x - pt completed 10/10x and reported sharp pain across low back. 7/10 pain. pr completed 10/10 rapidly. heart rate 116. no increase in 7/10 pain. pt did sit following task. pt can squat on a occasional ability Kneeling: pt demo the ability to kneel 3/3x, 10/10 x and 5/10 - pt stopped due to pain or feeling of hips going to dislocate. pt states feels pain in hips. heart rate 92. heart rate 112 following 5/10 kneeling. pt can kneel on occasional ability Reaching out/up: pt demo the ability to reach out/up 3/3x, 10/10x and 10/10x rapidly. pts heart rate 112 initial prior to initiating reaching up/out. pts heart rate 102 after completing rapidly pt can reach up/out on a frequent ability. pain level 7/10 Walking: pt demo the ability to ambulate for 7 min and then needed to stop due to bilateral hip pain- pt continued reciprocal gait pattern with good step pattern- pt can ambulate on an occasional ability Standing: pt stood of 4 min shifting body weight from foot to foot. pt demo standing on and off throughout session- would stand or walk around room to alleviate pain. pt can stand on an occasional ability with given the opportunity to shift his body weight Sitting: pt demo the ability to sit for 40 min with no apparent or expressed discomfort. pt can sit on a frequent ability Climbing Stairs: pt ascended/descended 10 steps with a reciprocal step pattern without use of handrail and good ability equal force safely upon descend no observed facial or expressed discomfort during this task. Floor Lift: Pt demonstrated the ability to lift 50# maximally from this level- pts stated low back pain was 8/10. pt demo good lifting mechanics throughout. Knee Lift: Pt demonstrated the ability to lift 50# maximally from this level- pts stated low back pain was 8/10. pt demo good lifting mechanics throughout. Waist Lift: Pt demonstrated the ability to lift 45# maximally from this level- pts stated low back pain was 7/10. pt demo good lifting mechanics throughout. Shoulder Lift: Pt demonstrated the ability to lift 35# maximally from this level-. pt demo good lifting mechanics throughout. Overhead Lift: Pt demonstrated the ability to 30# maximally from this level- pts stated low back pain was 8/10. pt demo good lifting mechanics throughout. Carrying: pt demo the ability to carry 35# antalgic gait pattern and good ability. pt leaning wt against body heart rate after lift was 111 Comments: pt had increase pain in bilateral hips with squatting and kneeling -. push of 45# for 20 feet. pull of 45# for 20 feet with increase pain.
--- NOTE | 2021-08-17 09:54 | HP.OTFCE.D ---
FCE D/C Summary - Discharge JESSICA SINGH was seen for a one time visit for an FCE on 08/04/21 and is discharged.
== END 2021-08-04 19:00 | disposition home or self-care (01) ==
LOC: OT 09:22
PROVIDERS: PCP Nurse Practitioner Primary Care; Referring Provider Nurse Practitioner Primary Care; Visit Provider Nurse Practitioner Primary Care
DX: M54.9 Dorsalgia, unspecified (principal); G89.29 Other chronic pain
CPT/HCPCS: 97750